=== PATIENT | male | born 1955 | race African-American/Black ===

== ENCOUNTER 2020-11-18 10:26 | Inpatient (IN) | payer MEDICARE, MEDICAID ==
[~2020-11-18] VITALS: Ht 121.9 cm; Wt 54.1 kg
[2020-11-18 11:44] LABS: BASO # 0.1 x10^3/uL (0.0-0.2); BASO % 0 % (0-3); EOS # 0.4 x10^3/uL (0.0-0.7); EOS % 2 % (0-3); HEMATOCRIT 25.5 % (39.0-53.0); HEMOGLOBIN 8.4 g/dL (13.0-17.5); LYMPH # 1.5 x10^3/uL (1.0-4.8); LYMPH % 8 % (24-48); MEAN CORPUSCULAR HEMOGLOBIN 28 pg (25-35); MEAN CORPUSCULAR HGB CONC 33 g/dL (31-37); MEAN CORPUSCULAR VOLUME 85 fL (79-100); MONO # 0.9 x10^3/uL (0.0-1.1); MONO % 5 % (0-9); NEUT # 15.9 x10^3/uL (1.8-7.7); NEUT % 85 % (31-73); PLATELET COUNT 491 x10^3/uL (140-400); RED CELL DISTRIBUTION WIDTH 16.3 % (11.5-14.5); WHITE BLOOD COUNT 18.8 x10^3/uL (4.0-11.0)
[2020-11-18 11:59] LABS: CALCIUM 8.6 mg/dL (8.5-10.1); CREATININE 2.4 mg/dL (0.7-1.3); GFR 32.9; POTASSIUM 4.2 mmol/L (3.5-5.1)
[2020-11-18 12:05] LABS: ALBUMIN 1.9 g/dL (3.4-5.0); ALBUMIN/GLOBULIN RATIO 0.4 (1.0-1.7); MAGNESIUM 2.5 mg/dL (1.8-2.4); TOTAL BILIRUBIN 0.3 mg/dL (0.2-1.0); TOTAL PROTEIN 6.5 g/dL (6.4-8.2)
[2020-11-18] MEDS ORDERED: PIP/TAZO PER PHARMACY MC PRN (12:30)
[2020-11-18] MEDS: PIPERACILLIN/TAZOBACTAM 2.25 GM in IV NORMAL SALINE 50ML 50 ML IV SCH ×2 (12:57→18:47)
--- NOTE | 2020-11-18 13:06 | PHYS DOC ---
Past Medical History Past Medical History: Diabetes-Type I, Renal Disease Past Surgical History: Other Additional Past Surgical Histo: COLOSTOMY BAG, DIALYSIS PORT Smoking Status: Never Smoker Alcohol Use: None General Adult EDM: Chief Complaint: MULTIPLE COMPLAINTS HPI: HPI: Patient is a 65-year-old male who was sent here by Dr. Weems of the pulmonary service at [facility] because the patient has a large pleural effusion on the left side and hit temporal dialysis catheter on the right side was clogged. Patient had end-stage renal failure on hemodialysis every Sunday and Sunday. Patient had his dialysis on Sunday, he went to dialysis on Sunday but they could not access the hemodialysis catheter therefore he did not have the dialysis. Patient otherwise did not have any fever or cough. He had [id number]-[id number] amputation bilaterally, he is bedbound, had decubitus ulcer on his buttock, has wound vac. Review of Systems: Review of Systems: Constitutional: Denies fever or chills. [] Eyes: Denies change in visual acuity. [] HENT: Denies nasal congestion or sore throat. [] Respiratory: Denies cough or shortness of breath. [] Cardiovascular: Denies chest pain or edema. [] GI: Denies abdominal pain, nausea, vomiting, bloody stools or diarrhea. [] : Denies dysuria. [] Musculoskeletal: Denies back pain or joint pain. [] Integument: Denies rash. [] Neurologic: Denies headache, focal weakness or sensory changes. [] Endocrine: Denies polyuria or polydipsia. [] Lymphatic: Denies swollen glands. [] Psychiatric: Denies depression or anxiety. [] Heart Score: Risk Factors: Risk Factors: DM, Current or recent (<one month) smoker, HTN, HLP, family history of CAD, obesity. Risk Scores: Score 0 - 3: 2.5% MACE over next 6 weeks - Discharge Home Score 4 - 6: 20.3% MACE over next 6 weeks - Admit for Clinical Observation Score 7 - 10: 72.7% MACE over next 6 weeks - Early Invasive Strategies Current Medications: Current Medications Medications (Trade) Dose Ordered Sig/Patrick Start Time Stop Time Status Last Admin Dose Admin Piperacillin Sod/ Tazobactam Sod (Zosyn Per Pharmacy) 1 each PRN DAILY PRN 11/18/20 12:30 Piperacillin Sod/ Tazobactam Sod 2.25 gm/Sodium Chloride 50 ml @ 100 mls/hr Q6HRS 11/18/20 13:00 11/18/20 12:57 100 MLS/HR Allergies: Allergies: Allergies Coded Allergies Type Severity Reaction Last Updated Verified morphine Allergy Intermediate HALLUCINATE 11/18/20 Yes Physical Exam: PE: Constitutional: Well developed, well nourished, no acute distress, non-toxic appearance. [] HENT: Normocephalic, atraumatic, bilateral external ears normal, oropharynx moist, no oral exudates, nose normal. [] Eyes: PERRLA, EOMI, conjunctiva normal, no discharge. [] Neck: Normal range of motion, no tenderness, supple, no stridor. [] Cardiovascular:Heart rate regular rhythm, no murmur [] Lungs & Thorax: Bilateral breath sounds clear to auscultation [] Abdomen: Bowel sounds normal, soft, no tenderness, no masses, no pulsatile masses. [] Skin: Warm, dry, no erythema, no rash. [] Back: No tenderness, no CVA tenderness. [] Extremities: above the knee amputation... Neurologic: Alert and oriented X 3, normal motor function, normal sensory function, no focal deficits noted. [] Psychologic: Affect normal, judgement normal, mood normal. [] Current Patient Data: Labs: Laboratory Tests Test 11/18/20 11:15 White Blood Count 18.8 x10^3/uL (4.0-11.0) H Red Blood Count 3.00 x10^6/uL (4.30-5.70) L Hemoglobin 8.4 g/dL (13.0-17.5) L Hematocrit 25.5 % (39.0-53.0) L Mean Corpuscular Volume 85 fL (79-100) Mean Corpuscular Hemoglobin 28 pg (25-35) Mean Corpuscular Hemoglobin Concent 33 g/dL (31-37) Red Cell Distribution Width 16.3 % (11.5-14.5) H Platelet Count 491 x10^3/uL (140-400) H Neutrophils (%) (Auto) 85 % (31-73) H Lymphocytes (%) (Auto) 8 % (24-48) L Monocytes (%) (Auto) 5 % (0-9) Eosinophils (%) (Auto) 2 % (0-3) Basophils (%) (Auto) 0 % (0-3) Neutrophils # (Auto) 15.9 x10^3/uL (1.8-7.7) H Lymphocytes # (Auto) 1.5 x10^3/uL (1.0-4.8) Monocytes # (Auto) 0.9 x10^3/uL (0.0-1.1) Eosinophils # (Auto) 0.4 x10^3/uL (0.0-0.7) Basophils # (Auto) 0.1 x10^3/uL (0.0-0.2) Platelet Estimate Pending Sodium Level 138 mmol/L (136-145) Potassium Level 4.2 mmol/L (3.5-5.1) Chloride Level 103 mmol/L (98-107) Carbon Dioxide Level 27 mmol/L (21-32) Anion Gap 8 (6-14) Blood Urea Nitrogen 75 mg/dL (8-26) H Creatinine 2.4 mg/dL (0.7-1.3) H Estimated GFR (Cockcroft-Gault) 32.9 BUN/Creatinine Ratio 31 (6-20) H Glucose Level 214 mg/dL (70-99) H Calcium Level 8.6 mg/dL (8.5-10.1) Magnesium Level 2.5 mg/dL (1.8-2.4) H Total Bilirubin 0.3 mg/dL (0.2-1.0) Aspartate Amino Transferase (AST) 30 U/L (15-37) Alanine Aminotransferase (ALT) 25 U/L (16-63) Alkaline Phosphatase 240 U/L (46-116) H Total Protein 6.5 g/dL (6.4-8.2) Albumin 1.9 g/dL (3.4-5.0) L Albumin/Globulin Ratio 0.4 (1.0-1.7) L Laboratory Tests 11/18/20 11:15 Laboratory Tests 11/18/20 11:15 Vital Signs: Vital Signs Date Time Temp Pulse Resp B/P (MAP) Pulse Ox O2 Delivery O2 Flow Rate FiO2 11/18/20 10:29 97.8 94 18 137/63 (87) 100 Room Air 97.8 EKG: EKG: EKG was done at 1033, heart rate of 96 beats per minutes, sinus rhythm, PVC Radiology/Procedures: Radiology/Procedures: [facility] [address] [place] [address] IMAGING REPORT Signed PATIENT: PADMINI SEXTON ACCOUNT: [id number] : 1955 LOCATION: ER AGE: 65 SEX: M EXAM STATUS: REG ER ORD. PHYSICIAN: JAKE DAWSON DO REASON: SOA PROCEDURE: CHEST AP ONLY Portable chest x-ray without comparison for nonfunctioning dialysis catheter, chronic renal failure. FINDINGS: There is a right IJ tunneled hemodialysis catheter. There is pleural effusion on the left, and there is likely bibasilar edema or infiltrate as well. Heart size within normal limits. Vascular stents are seen within the left axilla and there are severe degenerative changes of the shoulders. IMPRESSION: 1. Left pleural effusion with bibasilar infiltrates. Electronically signed by: Ananda Fonseca MD (11/18/2020 1:05 PM) [id number] DICTATED and SIGNED BY: ANANDA FONSECA MD DATE: 11/18/20 [id number] Course & Med Decision Making: Course & Med Decision Making Pertinent Labs and Imaging studies reviewed. (See chart for details) [] Dragon Disclaimer: Dragon Disclaimer: This electronic medical record was generated, in whole or in part, using a voice recognition dictation system. Departure Departure Impression: Primary Impression: Dialysis catheter clot or failure Additional Impressions: ESRD (end stage renal disease) on dialysis Pleural effusion on left Disposition: 09 ADMITTED INPT THIS HOSP Admitting Physician: ELYSE (DR. COWAN) Condition: STABLE Referrals: SEBASTIAN AGUILAR MD (PCP) JAKE DAWSON DO Nov 18, 2020 13:06
[2020-11-18 13:12] LABS: % EOS 2 % (0-5); % LYMPHS 8 % (24-48); % MONOS 2 % (0-10); % SEGS 88 % (35-66)
[2020-11-18 13:13] LABS: ANISOCYTOSIS SLIGHT; PLT ESTIMATE ADEQUATE (ADEQUATE)
--- NOTE | 2020-11-18 14:20 | HP ---
ADMIT DATE: 11/18/2020 CHIEF COMPLAINT: Sent from [facility] to have thoracentesis due to pleural effusion and to have his hemodialysis catheter changed as it is malfunctioning. HISTORY OF PRESENT ILLNESS: The patient is a pleasant elderly male who has had a complex recent past history. Basically on 10/19/2020, he was admitted to [facility] for management of wounds and sepsis. He had been recently admitted to [facility] on 10/08/2020 where he was treated for osteomyelitis. He is a dialysis patient. He has had a recent upper extremity DVT for which he has been on Coumadin. I have initially noted he does have bilateral [id number] amputations. He also has a colostomy on the left. He states he has some chronic cancer but is not sure what it is. He was recently transfused because of her hemoglobin is low at 6.2. He had recent colonoscopies and endoscopies, which were negative. On 09/23/2020, he had a dialysis catheter removed and replaced on 10/08/2020. Apparently, he developed a large right pneumothorax after that procedure and a chest tube had to be placed. The tube was there for about 4 days from 10/11/2020 to 10/15/2020. He seems to have chronic elevation of his troponins and that is likely secondary to his chronic renal insufficiency. He has multiple wounds. He has been sent here today to our Emergency Room by Dr. Weems of the pulmonary service at [facility] because the patient has a pleural effusion and his dialysis catheter was malfunctioning. The patient is currently being examined in the ER where I just discussed the case with his nurses and Dr. Augustin the ER physician. We are going to admit the patient. PAST MEDICAL HISTORY: As per above, plus he has a history of coronary artery disease, peripheral vascular disease, diabetes, end-stage renal disease on dialysis, multiple shunts and catheters, colostomy, some type of cancer, but he is not sure. He has a remote history of VRE, hyperlipidemia, constipation, polypharmacy, chronic anticoagulation. ALLERGIES: MORPHINE. FAMILY HISTORY: Diabetes. SOCIAL HISTORY: He is retired. He does not drink, smoke or take drugs. MEDICATIONS: Reviewed, please refer to the MRAD. REVIEW OF SYSTEMS: GENERAL: He complains of weakness. SKIN: No bruising, hair changes or rashes. EYES: No blurred, double or loss of vision. NOSE AND THROAT: No history of nosebleeds, hoarseness or sore throat. HEART: No history of palpitations, chest pain or shortness of breath on exertion. LUNGS: He complains of shortness of breath. GASTROINTESTINAL: Denies changes in appetite, nausea, vomiting, diarrhea or constipation. GENITOURINARY: No history of frequency, urgency, hesitancy or nocturia. NEUROLOGIC: He complains of weakness. PSYCHIATRIC: He complains of depression. ENDOCRINE: No history of heat or cold intolerance, polyuria or polydipsia. EXTREMITIES: Denies muscle weakness, joint pain, pain on walking or stiffness. PHYSICAL EXAMINATION: VITALS: Within normal limits and are stable. GENERAL: He appears depressed. HEENT: Normal cephalic atraumatic, external auditory canals are patent EYES: Extraocular muscles are intact, pupils are equally round and reactive to light and accommodation MUSCULOSKELETAL: Well developed, well nourished, good range of motion ENDOCRINE: No thyromegaly was palpated LYMPHATICS: No cervical chain or axillary nodes were noted HEMATOPOIETIC: No bruising NECK: Supple, no JVD, no thyromegaly was noted. LUNGS: Clear to auscultation in all lung echavarria without rhonchi or wheezing. HEART: RRR, S1, S2 present. Peripheral pulses intact, no obvious murmurs were noted. ABDOMEN: He has a colostomy on the left lower quadrant, it appears to have some blood in it. EXTREMITIES: He has bilateral ahjmw-qib-sznz amputations of the lower extremities. NEUROLOGIC: He appears weak and depressed. PSYCHIATRIC: He appears depressed. SKIN: No ulcerations or rashes, good skin turgor, no jaundice. VASCULAR: Good capillary refill, neurovascular bundle appears to be intact. LABORATORY DATA: White count 18.8, hemoglobin 8.4, platelets 491. Electrolytes: Sodium 138, potassium 4.2, chloride 103, bicarbonate 27, BUN 75, creatinine 2.4, glucose 214. Chest x-ray is done, results are pending, but I have reviewed the films myself. The cardiac silhouette appears normal. There is a rvigi-hz-[id number] size left pleural effusion. He has a dialysis catheter on the right. It appears to be in good position. We will await further read by the radiologist. ASSESSMENT AND PLAN: Pleural effusion, failed dialysis catheter in an elderly male with multiple comorbidities, please see above. The patient has been admitted. We will consult Nephrology, consult Interventional Radiology consult Pulmonary Medicine. Cardiac monitoring, home meds, deep venous thrombosis prophylaxis. Trend labs. CC TIME: 31 minutes. EJ COWAN DO DR: SERENA/loraine JOB#: [id number] / [id number]
[2020-11-18 16:02] LABS: PROTHROMBIN TIME PATIENT 16.2 SEC (11.7-14.0)
[2020-11-18] MEDS ORDERED: fentaNYL PF VIAL 100 MCG/2 ML VIAL ONE (16:05)
[2020-11-18] MEDS: fentaNYL PF VIAL 100 MCG/2 ML VIAL IVP PRN (16:07)
[2020-11-18] MEDS: oxyCODONE/APAP 5/325 1 TAB TABLET PO PRN (17:51)
--- NOTE | 2020-11-18 20:00 | NUR ---
The patient, Jim Menendez, admitted to room 502, multiple wounds with dressings, one has a wound vac edmond dressing, to pic and change,
[2020-11-18 23:00] VITALS: BP 143/69
[2020-11-19] VITALS (7 sets, daily range): BP systolic 124–173; BP diastolic 64–74
[2020-11-19] MEDS ORDERED: ARGI1POW23 PO (00:01)
[2020-11-19] MEDS ORDERED: INSU100V13 SQ (00:01)
[2020-11-19] MEDS ORDERED: MELA5TAB21 PO (00:01)
[2020-11-19] MEDS ORDERED: ACET325T21 PO (00:01)
[2020-11-19] MEDS ORDERED: SODI473S25 MC (00:01)
[2020-11-19] MEDS ORDERED: MEGASE (00:01)
[2020-11-19] MEDS ORDERED: DOCU-109 PO (00:01)
[2020-11-19] MEDS ORDERED: LORA10CA PO (00:01)
[2020-11-19] MEDS ORDERED: MIDO10TA PO (00:01)
[2020-11-19] MEDS ORDERED: EPOE200014 IJ (00:01)
[2020-11-19] MEDS ORDERED: CARB1TAB22 PO (00:01)
[2020-11-19] MEDS ORDERED: FENT1PAT13 TP (00:01)
[2020-11-19] MEDS ORDERED: PANT40TA77 PO (00:01)
[2020-11-19] MEDS ORDERED: VANC750P15 IV (00:01)
[2020-11-19] MEDS ORDERED: SILV20CR14 TP (00:01)
[2020-11-19] MEDS ORDERED: [UNRECOGNIZED DRUG - OTHER] IV (00:01)
[2020-11-19] MEDS ORDERED: ATOR40TA59 PO (00:01)
[2020-11-19] MEDS ORDERED: SERT50TA PO (00:01)
[2020-11-19] MEDS ORDERED: OXYC1TAB15 PO (00:01)
[2020-11-19] MEDS: PIPERACILLIN/TAZOBACTAM 2.25 GM in IV NORMAL SALINE 50ML 50 ML IV SCH ×2 (00:17→06:32)
--- NOTE | 2020-11-19 03:00 | NUR ---
Patient's pre-admit dressings changed, pictured, w-d dressing, foam applied,
--- NOTE | 2020-11-19 05:00 | NUR ---
Patient had fentanyl patch 12.5 to right shoulder from facility, date 11/11..removed, shown to Delia (4 n) nurse, disposed in medication disposal unit.
--- NOTE | 2020-11-19 13:11 | PDOC2 ---
CONSULT Date of Consult Date of Consult DATE: 11/19/20 TIME: 13:04 Reason for Consult Reason for Consult: ESRD Referring Physician Referring Physician: CHAPO Identification/Chief Complaint Chief Complaint THIS IS A 65 YR OLD ESRD PT WITH SOB. NOTED TO HAVE LARGE LEFT PLEURAL EFFUSION. HE HAS ESRD AND HAS OP HD ON MWF VIA A RIGHT IJ TDC. HAS NOT HAD HD IN NEARLY A WEEK PER PT DUE TO POORLY FUNCTIONING DIALYSIS CATHETER. ESRD IS DUE TO HTN AND DM II. LABS ARE C/W ESRD. HE IS ALSO NOTED TO HAVE LEUCOCYTOSIS. ALSO HAS A SACRAL DECUBITI AND AN ULCER. Source Source: Chart review, Patient History of Present Illness Reason for Visit: ABOVE Past Medical History Cardiovascular: HTN GI: Constipation Heme/Onc: Anemia NOS Renal/: Chronic renal failure Endocrine: Diabetes, Hyperparathyroidism Past Surgical History Past Surgical History BILATERAL BKA Family History Family History: Diabetes, Hypertension Social History No ALCOHOL: none Drugs: None Lives: Assisted Current Problem List Problem List Problems Medical Problems: (1) Dialysis catheter clot or failure Status: Acute (2) ESRD (end stage renal disease) on dialysis Status: Acute (3) Pleural effusion on left Status: Acute Current Medications Current Medications Current Medications Piperacillin Sod/ Tazobactam Sod (Zosyn Per Pharmacy) 1 each PRN DAILY PRN MC SEE COMMENTS; Start 11/18/20 at 12:30 Piperacillin Sod/ Tazobactam Sod 2.25 gm/Sodium Chloride 50 ml @ 100 mls/hr Q6HRS IV Last administered on 11/19/20at 06:32; Start 11/18/20 at 13:00 Fentanyl Citrate (Fentanyl 2ml Vial) 50 mcg PRN Q2HR PRN IVP MODERATE TO SEVERE PAIN Last administered on 11/18/20at 16:07; Start 11/18/20 at 16:15 Fentanyl Citrate (Fentanyl 2ml Vial) 100 mcg STK-MED ONCE .ROUTE ; Start 11/18/20 at 16:05; Stop 11/18/20 at 16:05; Status DC Oxycodone/ Acetaminophen (Percocet 5/325) 1 tab PRN Q4HRS PRN PO PAIN Last administered on 11/18/20at 17:51; Start 11/18/20 at 17:45 Active Scripts Active Reported Percocet 5-325 Mg Tablet (Oxycodone/Acetaminophen) 1 Each Tablet 1 Tab PO Q4HRS PRN MDD 4 Tablet(s) 30 Days Acetaminophen 325 Mg Tablet 650 Mg PO PRN Q6HRS PRN Dakin's (Sodium Hypochlorite) 473 Ml Solution 473 Ml MC BID Silvadene (Silver Sulfadiazine) 20 Gm Cream..g. 1 Ela TP DAILY 7 Days apply to affected area(s) Zoloft (Sertraline Hcl) 50 Mg Tablet 1 Tab PO DAILY Pantoprazole Sodium (Pantoprazole Sodium) 40 Mg Tablet.dr 40 Mg PO DAILYAC Midodrine Hcl 10 Mg Tablet 10 Mg PO TID Melatonin 5 Mg Tab.ir.er 1 Tab PO QHS 30 Days [megase 400 daily] DAILY Levemir (Insulin Detemir) 100 Unit/1 Ml Vial 4 Unit SQ HS FENTANYL 12mcg/hr (Fentanyl) 1 Each Patch.td72 1 Patch TP Q3DAYS Procrit (Epoetin Anirudh) 20,000 Unit/1 Ml Vial 4,000 Unit IJ MWF Colace (Docusate Sodium) 100 Mg Capsule 1 Cap PO BID 30 Days Claritin (Loratadine) 10 Mg Capsule 1 Cap PO DAILY 30 Days Carbidopa-Levodopa 25-100 Tab (Carbidopa/Levodopa) 1 Each Tablet 1 Each PO DAILY Atorvastatin Calcium 40 Mg Tablet 1 Tab PO QHS Tom Packet (Argin/Glut/Cahmb/Collag/Mv-Min) 1 Each Powd.pack 1 Each PO BID [ferric] 125 Mg IV Vancomycin 750 mg/150 ml Bag (Vancomycin/Water For Inj (Peg)) 750 Mg/150 Ml Piggyback 500 Mg IV QMWF Allergies Allergies: Coded Allergies: morphine (Verified Allergy, Intermediate, HALLUCINATE, 11/18/20) ROS General: YES: Fatigue, Malaise PSYCHOLOGICAL ROS: YES: Anxiety, Depression Eyes: Yes Decreased vision HEENT: YES: Heacaches Respiratory: YES: Cough, Shortness of breath Gastrointestinal: Yes Constipation Genitourinary: YES Other (ANURIA) Musculoskeletal: Yes Muscular Weakness Neurological: Yes Weakness Skin: Yes Dry Skin Physical Exam General: Alert, Oriented X3, Cooperative HEENT: Atraumatic Lungs: Other (DECREASED AT BASES) Heart: Regular rate Abdomen: Normal bowel sounds Extremities: No clubbing Skin: No breakdown Neuro: Normal speech Psych/Mental Status: Mood NL MUSCULOSKELETAL: Other (BKA BILATERALLY) Vitals VITALS Vital Signs Date Time Temp Pulse Resp B/P (MAP) Pulse Ox O2 Delivery O2 Flow Rate FiO2 11/19/20 11:00 98.5 94 18 173/74 (107) 98 Room Air 98.5 Labs Labs Laboratory Tests Test 11/18/20 11:15 11/18/20 13:06 11/18/20 13:20 11/18/20 16:12 White Blood Count 18.8 x10^3/uL (4.0-11.0) Red Blood Count 3.00 x10^6/uL (4.30-5.70) Hemoglobin 8.4 g/dL (13.0-17.5) Hematocrit 25.5 % (39.0-53.0) Mean Corpuscular Volume 85 fL (79-100) Mean Corpuscular Hemoglobin 28 pg (25-35) Mean Corpuscular Hemoglobin Concent 33 g/dL (31-37) Red Cell Distribution Width 16.3 % (11.5-14.5) Platelet Count 491 x10^3/uL (140-400) Neutrophils (%) (Auto) 85 % (31-73) Lymphocytes (%) (Auto) 8 % (24-48) Monocytes (%) (Auto) 5 % (0-9) Eosinophils (%) (Auto) 2 % (0-3) Basophils (%) (Auto) 0 % (0-3) Neutrophils # (Auto) 15.9 x10^3/uL (1.8-7.7) Lymphocytes # (Auto) 1.5 x10^3/uL (1.0-4.8) Monocytes # (Auto) 0.9 x10^3/uL (0.0-1.1) Eosinophils # (Auto) 0.4 x10^3/uL (0.0-0.7) Basophils # (Auto) 0.1 x10^3/uL (0.0-0.2) Segmented Neutrophils % 88 % (35-66) Lymphocytes % 8 % (24-48) Monocytes % 2 % (0-10) Eosinophils % 2 % (0-5) Platelet Estimate Adequate (ADEQUATE) Anisocytosis Slight Sodium Level 138 mmol/L (136-145) Potassium Level 4.2 mmol/L (3.5-5.1) Chloride Level 103 mmol/L (98-107) Carbon Dioxide Level 27 mmol/L (21-32) Anion Gap 8 (6-14) Blood Urea Nitrogen 75 mg/dL (8-26) Creatinine 2.4 mg/dL (0.7-1.3) Estimated GFR (Cockcroft-Gault) 32.9 BUN/Creatinine Ratio 31 (6-20) Glucose Level 214 mg/dL (70-99) Calcium Level 8.6 mg/dL (8.5-10.1) Magnesium Level 2.5 mg/dL (1.8-2.4) Total Bilirubin 0.3 mg/dL (0.2-1.0) Aspartate Amino Transf (AST/SGOT) 30 U/L (15-37) Alanine Aminotransferase (ALT/SGPT) 25 U/L (16-63) Alkaline Phosphatase 240 U/L (46-116) Total Protein 6.5 g/dL (6.4-8.2) Albumin 1.9 g/dL (3.4-5.0) Albumin/Globulin Ratio 0.4 (1.0-1.7) SARS-CoV-2 Antigen (Rapid) Negative (NEGATIVE) Prothrombin Time 16.2 SEC (11.7-14.0) Prothromb Time International Ratio 1.3 (0.8-1.1) Lactic Acid Level 1.1 mmol/L (0.4-2.0) Test 11/18/20 21:56 11/19/20 07:15 11/19/20 11:46 Glucose (Fingerstick) 214 mg/dL (70-99) 209 mg/dL (70-99) 154 mg/dL (70-99) Laboratory Tests Test 11/18/20 13:06 11/18/20 13:20 11/18/20 16:12 11/18/20 21:56 SARS-CoV-2 Antigen (Rapid) Negative (NEGATIVE) Prothrombin Time 16.2 SEC (11.7-14.0) Prothromb Time International Ratio 1.3 (0.8-1.1) Lactic Acid Level 1.1 mmol/L (0.4-2.0) Glucose (Fingerstick) 214 mg/dL (70-99) Test 11/19/20 07:15 11/19/20 11:46 Glucose (Fingerstick) 209 mg/dL (70-99) 154 mg/dL (70-99) Images Images Portable chest x-ray without comparison for nonfunctioning dialysis catheter, chronic renal failure. FINDINGS: There is a right IJ tunneled hemodialysis catheter. There is pleural effusion on the left, and there is likely bibasilar edema or infiltrate as well. Heart size within normal limits. Vascular stents are seen within the left axilla and there are severe degenerative changes of the shoulders. IMPRESSION: 1. Left pleural effusion with bibasilar infiltrates. Assessment/Plan Assessment/Plan IMP ESRD ANEMIA DM II HTN PLEURAL EFFUSION SACRAL DECUBITI LEUCOCYTOSIS PLAN ANTBIOTICS ARANESP HD LINE CHANGE HD TODAY UF TO DW PROB THORACENTESIS PULM EVAL AND TX WILL FOLLOW LONI PAREKH MD Nov 19, 2020 13:10
--- NOTE | 2020-11-19 13:27 | PDOC ---
PULMONARY PROGRESS NOTES DATE: 11/19/20 TIME: 13:27 Vitals Vital Signs Date Time Temp Pulse Resp B/P (MAP) Pulse Ox O2 Delivery O2 Flow Rate FiO2 11/19/20 11:00 98.5 94 18 173/74 (107) 98 Room Air 98.5 Labs Laboratory Tests Test 11/18/20 11:15 11/18/20 13:06 11/18/20 13:20 11/18/20 16:12 White Blood Count 18.8 x10^3/uL (4.0-11.0) Red Blood Count 3.00 x10^6/uL (4.30-5.70) Hemoglobin 8.4 g/dL (13.0-17.5) Hematocrit 25.5 % (39.0-53.0) Mean Corpuscular Volume 85 fL (79-100) Mean Corpuscular Hemoglobin 28 pg (25-35) Mean Corpuscular Hemoglobin Concent 33 g/dL (31-37) Red Cell Distribution Width 16.3 % (11.5-14.5) Platelet Count 491 x10^3/uL (140-400) Neutrophils (%) (Auto) 85 % (31-73) Lymphocytes (%) (Auto) 8 % (24-48) Monocytes (%) (Auto) 5 % (0-9) Eosinophils (%) (Auto) 2 % (0-3) Basophils (%) (Auto) 0 % (0-3) Neutrophils # (Auto) 15.9 x10^3/uL (1.8-7.7) Lymphocytes # (Auto) 1.5 x10^3/uL (1.0-4.8) Monocytes # (Auto) 0.9 x10^3/uL (0.0-1.1) Eosinophils # (Auto) 0.4 x10^3/uL (0.0-0.7) Basophils # (Auto) 0.1 x10^3/uL (0.0-0.2) Segmented Neutrophils % 88 % (35-66) Lymphocytes % 8 % (24-48) Monocytes % 2 % (0-10) Eosinophils % 2 % (0-5) Platelet Estimate Adequate (ADEQUATE) Anisocytosis Slight Sodium Level 138 mmol/L (136-145) Potassium Level 4.2 mmol/L (3.5-5.1) Chloride Level 103 mmol/L (98-107) Carbon Dioxide Level 27 mmol/L (21-32) Anion Gap 8 (6-14) Blood Urea Nitrogen 75 mg/dL (8-26) Creatinine 2.4 mg/dL (0.7-1.3) Estimated GFR (Cockcroft-Gault) 32.9 BUN/Creatinine Ratio 31 (6-20) Glucose Level 214 mg/dL (70-99) Calcium Level 8.6 mg/dL (8.5-10.1) Magnesium Level 2.5 mg/dL (1.8-2.4) Total Bilirubin 0.3 mg/dL (0.2-1.0) Aspartate Amino Transf (AST/SGOT) 30 U/L (15-37) Alanine Aminotransferase (ALT/SGPT) 25 U/L (16-63) Alkaline Phosphatase 240 U/L (46-116) Total Protein 6.5 g/dL (6.4-8.2) Albumin 1.9 g/dL (3.4-5.0) Albumin/Globulin Ratio 0.4 (1.0-1.7) SARS-CoV-2 Antigen (Rapid) Negative (NEGATIVE) Prothrombin Time 16.2 SEC (11.7-14.0) Prothromb Time International Ratio 1.3 (0.8-1.1) Lactic Acid Level 1.1 mmol/L (0.4-2.0) Test 11/18/20 21:56 11/19/20 07:15 11/19/20 11:46 Glucose (Fingerstick) 214 mg/dL (70-99) 209 mg/dL (70-99) 154 mg/dL (70-99) Laboratory Tests Test 11/18/20 16:12 11/18/20 21:56 11/19/20 07:15 11/19/20 11:46 Lactic Acid Level 1.1 mmol/L (0.4-2.0) Glucose (Fingerstick) 214 mg/dL (70-99) 209 mg/dL (70-99) 154 mg/dL (70-99) Medications Active Scripts Medications Dose Route/Sig Max Daily Dose Days Date Category Dose Instructions Percocet 5-325 Mg Tablet (Oxycodone/Acetaminophen) 1 Each Tablet 1 Tab PO Q4HRS PRN MDD 4 Tablet(s) 30 11/19/20 Reported Acetaminophen 325 Mg Tablet 650 Mg PO PRN Q6HRS PRN 11/19/20 Reported Dakin's (Sodium Hypochlorite) 473 Ml Solution 473 Ml MC BID 11/19/20 Reported Silvadene (Silver Sulfadiazine) 20 Gm Cream..g. 1 Ela TP DAILY 7 11/19/20 Reported apply to affected area(s) Zoloft (Sertraline Hcl) 50 Mg Tablet 1 Tab PO DAILY 11/19/20 Reported Pantoprazole Sodium (Pantoprazole Sodium) 40 Mg Tablet.dr 40 Mg PO DAILYAC 11/19/20 Reported Midodrine Hcl 10 Mg Tablet 10 Mg PO TID 11/19/20 Reported Melatonin 5 Mg Tab.ir.er 1 Tab PO QHS 30 11/19/20 Reported [megase 400 daily] DAILY 11/19/20 Reported Levemir (Insulin Detemir) 100 Unit/1 Ml Vial 4 Unit SQ HS 11/19/20 Reported FENTANYL 12mcg/hr (Fentanyl) 1 Each Patch.td72 1 Patch TP Q3DAYS 11/19/20 Reported Procrit (Epoetin Anirudh) 20,000 Unit/1 Ml Vial 4,000 Unit IJ MWF 11/19/20 Reported Colace (Docusate Sodium) 100 Mg Capsule 1 Cap PO BID 30 11/19/20 Reported Claritin (Loratadine) 10 Mg Capsule 1 Cap PO DAILY 30 11/19/20 Reported Carbidopa-Levodopa 25-100 Tab (Carbidopa/Levodopa) 1 Each Tablet 1 Each PO DAILY 11/19/20 Reported Atorvastatin Calcium 40 Mg Tablet 1 Tab PO QHS 11/19/20 Reported Tom Packet (Argin/Glut/Cahmb/Collag/Mv-Min) 1 Each Powd.pack 1 Each PO BID 11/19/20 Reported [ferric] 125 Mg IV 11/19/20 Reported Vancomycin 750 mg/150 ml Bag (Vancomycin/Water For Inj (Peg)) 750 Mg/150 Ml Piggyback 500 Mg IV QMWF 11/19/20 Reported Impression . Full consult dictated Left-sided effusion, discussed with IR, proceed with thoracentesis. HUNTER HIGGINS MD Nov 19, 2020 13:27
--- NOTE | 2020-11-19 13:39 | NUR ---
RIO following for discharge planning. Spoke with RN and reviewed chart. RIO attempted to met with pt, pt sleeping. Spoke with pt's Luli ([phone]) to coordinate care. Pt transferred to [facility] from [facility]. Pt on room air, IV Zosyn, COVID negative. Pt's would like pt to return to [facility] upon discharge. RIO coordinated care with Luis Antonio from [facility]. RIO faxed clinicals. Luis Antonio to submit for insurance authorization. RIO added pt to possible weekend discharge list. Pt does out-patient dialysis at [facility] ([phone]) when he is not at [facility]. RIO following. Addendum: 11/19/20 at 1354 by LISA PATE Patient choice of vendor form completed.
[2020-11-19] MEDS ORDERED: VANCOMYCIN 1.25 GM in IV NORMAL SALINE 250ML 250 ML IV ONE (13:45)
[2020-11-19] MEDS: fentaNYL PF VIAL 100 MCG/2 ML VIAL IVP PRN ×3 (13:49→20:43)
--- NOTE | 2020-11-19 13:50 | CONS ---
DATE OF CONSULTATION: 11/19/2020 REFERRING PHYSICIAN: Dr. Aguilar. REASON FOR CONSULTATION: Antibiotic management. HISTORY OF PRESENT ILLNESS: A 65-year-old -[place]ong[place] male who was admitted to [facility] in October for management of wounds IV antibiotic for sepsis and continued support. The patient has history of end-stage renal disease, on hemodialysis through a dialysis catheter in the right chest wall, was found to have a left pleural effusion. His hemodialysis catheter is also malfunctioning, so it needs removal. The patient has history of hospitalization at [facility] in 10/2020 during which time he was diagnosed with bacteremia and osteomyelitis. He was discharged on ertapenem to complete through 11/24/2020. The patient also was diagnosed with right upper extremity DVT for which he has been on Coumadin. He also underwent transfusion as his hemoglobin was low. The patient underwent dialysis catheter removal on 09/23/2020 and replaced on 10/08/2020. Apparently, he developed right pneumothorax after the procedure and a chest tube had to be placed. The tube was there until 10/15/2020. Patient also has multiple wounds on both the ischium unstageable, patient also underwent right AKA approximately a year ago and left AKA approximately 7 years ago. Also, has diverting ostomy. The patient is currently on Zosyn. ID consultation has been requested for further evaluation and treatment. PAST MEDICAL HISTORY: Coronary artery disease, peripheral vascular disease, diabetes, end-stage renal disease, on dialysis, multiple shunts and catheters, colostomy, bilateral AKA, history of ESBL E. coli bacteremia on meropenem, multiple wounds right and left ischium unstageable debility. Chronic anticoagulation for right upper extremity DVT, anemia, pneumothorax resolved. ALLERGIES: MORPHINE. FAMILY HISTORY: As per HPI. SOCIAL HISTORY: Retired. No smoking, ETOH, or illicit drug use. Currently at [facility]. CURRENT MEDICATIONS: Zosyn. Other medications reviewed in medication list. REVIEW OF SYSTEMS: Denies fevers or chills. Does complain of weakness. Denies any abdominal pain, nausea, vomiting, or diarrhea. PHYSICAL EXAMINATION: VITAL SIGNS: Temperature 98.5, pulse 94, respiratory rate 18, blood pressure 173/74, oxygen saturation 98% on room air. GENERAL: Alert, awake male lying in bed comfortably, in no acute distress, appears depressed. HEENT: Normocephalic, atraumatic, anicteric. No thrush. NECK: Supple. LUNGS: Decreased breath sound at the bases, left greater than right. No wheezing. No accessory muscle use. HEART: S1, S2. ABDOMEN: Colostomy in left lower quadrant appears to be functioning, some blood in it, no distension. Bowel sounds present. 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 NEUROLOGIC: Weak, alert and awake. PSYCHIATRIC: Depressed. DERMATOLOGIC: No generalized rash. Wound was not assessed today. HDC catheter, right chest wall present. LABORATORY DATA: WBC 18.8, hemoglobin 8.4, hematocrit 25.5, platelets 491. Sodium 138, potassium 4.2, chloride 103, bicarbonate 27, BUN 75, creatinine 2.4, glucose 214. Lactate 1.1, alkaline phosphatase 240, albumin 1.9. INR 1.3. COVID-19 rapid negative. DIAGNOSTICS: Chest x-ray, left pleural effusion with bibasilar infiltrates. IMPRESSION: 1. History of E. coli extended spectrum beta lactamase bacteremia at [facility]. I do not have the details. The patient was to continue ertapenem through 11/24/2020. 2. Left pleural effusion. Awaiting thoracocentesis 3. Failed hemo-dialysis catheter. 4. Multiple unstageable stage 4 pressure ulcers to sacrum right and left ischium and left trochanter with history of osteomyelitis. 5. Anemia. Leukocytosis 6. End-stage renal disease, on hemodialysis. 7. Generalized debility. 8. History of right upper extremity deep venous thrombosis. 9. Anemia. 10. Pneumothorax, resolved. 11. Diabetes mellitus 2. 12. Severe malnutrition. 13. Diverting colostomy. RECOMMENDATIONS: 1. Discontinue Zosyn. 2. Start meropenem as the patient was on the same at [facility]. Restart IV Vancomycin 3. Continue local wound care. 4. Plans are for HD catheter removal later today. 5. Follow up blood cultures. 6. Monitor labs. 7. Continue wound care as directed. 8. Follow up left pleural fluid studies 9. Continue supportive care. Prognosis poor Thank you for allowing me to participate in this patient's care. If you have any questions, do not hesitate to contact me. RAMIRO SALAS MD DR: LIBORIO/loraine JOB#: [id number] / [id number] ANNABELD
[2020-11-19] MEDS ORDERED: LIDOCAINE WITH 8.4% SOD BICARB 3 ML DISP.SYRIN. ONE (13:53)
[2020-11-19] MEDS ORDERED: MIDAZOLAM HCL/PF 2 MG/2 ML VIAL. ONE (14:09)
[2020-11-19] MEDS ORDERED: fentaNYL PF VIAL 100 MCG/2 ML VIAL ONE (14:09)
--- NOTE | 2020-11-19 14:25 | PDOC ---
[employer] PROGRESS NOTE Date of Service DOS: DATE: 11/19/20 TIME: 14:22 Chief Complaint Chief Complaint Left pleural effusion Malfunctioning dialysis catheter Reactive leukocytosis Chronic anemia due to ESRD Severe protein malnutrition Pending thoracentesis with interventional radiology Continue with HD with nephrology Continue with empiric IV antibiotics per ID Pending blood and urine cultures Heparin for DVT prophylaxis ADA diet Full code Discussed with RN and SW Disposition inpatient management as above Surrogate decision maker is Luli Menendez History of Present Illness History of Present Illness 11/19/2020 No acute events overnight. Patient remains afebrile. Pending thoracentesis today and revision of this dialysis catheter. Patient's chart, labs, images were reviewed and discussed with RN The patient is a pleasant elderly male who has had a complex recent past history. Basically on 10/19/2020, he was admitted to [facility] for management of wounds and sepsis. He had been recently admitted to [facility] on 10/08/2020 where he was treated for osteomyelitis. He is a dialysis patient. He has had a recent upper extremity DVT for which he has been on Coumadin. I have initially noted he does have bilateral [id number] amputations. He also has a colostomy on the left. He states he has some chronic cancer but is not sure what it is. He was recently transfused because of her hemoglobin is low at 6.2. He had recent colonoscopies and endoscopies, which were negative. On 09/23/2020, he had a dialysis catheter removed and replaced on 10/08/2020. Apparently, he developed a large right pneumothorax after that procedure and a chest tube had to be placed. The tube was there for about 4 days from 10/11/2020 to 10/15/2020. He seems to have chronic elevation of his troponins and that is likely secondary to his chronic renal insufficiency. He has multiple wounds. He has been sent here today to our Emergency Room by Dr. Weems of the pulmonary service at [facility] because the patient has a pleural effusion and his dialysis catheter was malfunctioning Vitals/I&O Vitals/I&O: Vital Signs Date Time Temp Pulse Resp B/P (MAP) Pulse Ox O2 Delivery O2 Flow Rate FiO2 11/19/20 13:49 19 93 Room Air 11/19/20 11:00 98.5 94 173/74 (107) 98.5 I & O 11/18/20 11/18/20 11/19/20 15:00 23:00 07:00 Intake Total 50 ml Output Total 0 ml Balance 50 ml Physical Exam General: Alert, Oriented X3, Cooperative Heart: Regular rate Abdomen: Normal bowel sounds Extremities: No clubbing Skin: No breakdown Labs Labs: Laboratory Tests Test 11/18/20 16:12 11/18/20 21:56 11/19/20 07:15 11/19/20 11:46 Lactic Acid Level 1.1 mmol/L (0.4-2.0) Glucose (Fingerstick) 214 mg/dL (70-99) 209 mg/dL (70-99) 154 mg/dL (70-99) Assessment and Plan Assessmemt and Plan Problems Medical Problems: (1) Dialysis catheter clot or failure Status: Acute (2) ESRD (end stage renal disease) on dialysis Status: Acute (3) Pleural effusion on left Status: Acute Comment Review of Relevant I have reviewed the following items ruby (where applicable) has been applied. Medications: Current Medications Medications (Trade) Dose Ordered Sig/Patrick Route PRN Reason Start Time Stop Time Status Last Admin Dose Admin Fentanyl Citrate (Fentanyl 2ml Vial) 50 mcg PRN Q2HR PRN IVP MODERATE TO SEVERE PAIN 11/18/20 16:15 11/19/20 13:49 Oxycodone/ Acetaminophen (Percocet 5/325) 1 tab PRN Q4HRS PRN PO PAIN 11/18/20 17:45 11/18/20 17:51 Justifications for Admission Other Justification ADRYAN BOUDREAUX MD Nov 19, 2020 14:25
[2020-11-19] MEDS ORDERED: LIDOCAINE 2%/EPI 1:100,000 20 ML VIAL. ONE (14:29)
[2020-11-19] MEDS ORDERED: LIDOCAINE 2%/EPI 1:100,000 20 ML VIAL. IJ ONE (14:30)
[2020-11-19] MEDS ORDERED: MIDAZOLAM HCL/PF 2 MG/2 ML VIAL. IV ONE (14:30)
[2020-11-19] MEDS ORDERED: LIDOCAINE WITH 8.4% SOD BICARB 3 ML DISP.SYRIN. IJ ONE (14:30)
[2020-11-19] MEDS ORDERED: fentaNYL PF VIAL 100 MCG/2 ML VIAL IV ONE (14:30)
--- NOTE | 2020-11-19 14:38 | NUR ---
Wound/Ostomy Care Wound Type/Assessment: Pt seen per wound care consult. See wound assessment. Pt has unstageable PU to the right and left ischiums, both slough covered with mild odor, a stage IV to the sacrum with bone exposed and undermining, and a stage III to the left hip with underming and slough covered. Pt stated he has had these wounds for quite some time. Treatment Recommendations/Plan: Recommendations for medi-honey gel applied to Aquacel Ag and cover with foams to the left and right ischiums and the left hip wounds, then Aquacel ag and foam dressing to the sacrum wound. Pt will need a surgical consult for possible debridement to the left and right ischium and left hip wounds. The plan is too allow for the honey to help soften and debride the wounds over the weekend. Education provided: Pt educated on dressing changes and PU management and treatment. Offloading surface/device: A clinitron bed ordered for this patient and a purple wedge. Recommended Referrals/Tests: Pt will need a surgical consult. Discharge Recommendations for dressings: Dressings applied and dressing change instructions left in room. Pt in significant amount of pain with these wounds. No other wounds noted upon complete head to toe assessment. Wound care will follow up with this patient on Sunday.
--- NOTE | 2020-11-19 15:12 | PDOC ---
BRIEF OPERATIVE NOTE Pre-Op Diagnosis Pleural Effusion, malfunctioning dialysis catheter Post-Op Diagnosis same Procedure Performed US thoracentesis and tunnelled HD catheter exchange Surgeon Erik SKY minimal Anesthesia Type: Conscious Sedation Specimens Obtained 80cc thin yellow pleural fluid Findings Left pleural effusion. Specimen sent. Right IJ tunnelled HD catheter through same venous access with excellent manual flows, suitable for use. Complications No immediate BRIDGET FONSECA MD Nov 19, 2020 15:12
--- NOTE | 2020-11-19 15:12 | PDOC ---
MODERATE SEDATION ASSESSMENT RISKS/ALTERNATIVES Risks/Alternatives Risks and alternatives of this type of sedation and procedure discussed with: RISK/ALTERNATIVES: Patient H & P ON CHART H & P H & P on chart and reviewed for co-morbid conditions and appropriate labs. H&P ON CHART: Yes STATUS PREG STATUS ASSESSED: Yes MEDS/ALLERGIES REVIEWED Meds/Allergies Reviewed Medications and Allergies including time and route of recently administered narcotics and sedatives. MEDS/ALLERGIES REVIEWED: Yes ASA RATING ASA RATING: II AIRWAY ASSESSMENT Airway Assessment Airway patency, oral function limitations, presence of caps, crowns, dentures, partials, and ability to extend neck assessed. AIRWAY ASSESSMENT: Yes MALLAMPATI SCORE MALLAMPATI SCORE: II PRE-SEDATION ASSESSMENT PRE-SEDATION ASSESSMENT: Yes BRIDGET FONSECA MD Nov 19, 2020 15:12
--- NOTE | 2020-11-19 15:16 | RAD ---
Ultrasound Guided Thoracentesis, left side Indication: Adult male with left pleural fluid collection Sedation: Local anesthesia only. Sterility: The procedure was performed in its entirety using appropriate elements of sterile technique. Technique and Findings: Following informed consent, the patient was prepped and draped in the usual sterile fashion. Ultrasound interrogation of the area of interest was performed revealing the presence of a pleural fluid collection. 1% Lidocaine was used to achieve local anesthesia over the area of interest. A small dermatotomy was made and a 5F [id number] catheter was advanced under ultrasound guidance into the pleural space and 1350 cc's of clear tanner fluid was removed. The catheter was then removed and hemostasis was achieved with manual compression. Impression: US thoracentesis as described.
--- NOTE | 2020-11-19 15:18 | RAD ---
Procedure: Exchange of tunneled hemodialysis catheter through same venous access Clinical Indication: Adult male with malfunctioning tunneled hemodialysis catheter Sedation: Conscious sedation was administered with a total intraprocedural [id number] time of 19 minutes. The patient was monitored by a qualified independent observer throughout the time of sedation. Please refer to the medical record for exact doses of medications utilized to achieve moderate sedation. Antibiotics: Antibiotic was administered intravenously within 1 hour of the procedure start time. Exposure: Kerma-Area Product: 1 Gycm2 Sterility: All elements of maximal sterile barrier technique including the use of a cap, mask, sterile gown, sterile gloves, large sterile sheet, appropriate hand hygiene, and 2% chlorhexidine for cutaneous antisepsis (or acceptable alternative antiseptic per current guidelines) were followed for this procedure. Consent: The procedure was explained in its entirety to the patient or the patients designated patient admitting representative by a member of the treatment team, including a discussion of the risks, benefits and commonly accepted alternatives to the procedure, as well as the expected consequences of no therapy whatsoever. Discussion of the risks included, but was not limited to, those that are most frequent and those that are rare but possibly severe or life-threatening, as well as the possibility of unforeseen complications. Technique and Findings: Following informed consent, the patient was prepped and draped in usual sterile fashion. Preliminary fluoroscopic spot view revealed an intact tunneled hemodialysis catheter. 1% lidocaine was used to achieve local anesthesia around the exit tract, and blunt dissection techniques were used to free the cuff. The catheter was then removed over a stiff Glidewire, and a new 23 cm palindrome catheter was advanced over the wire and positioned with the distal tip in the proximal right atrium. Manual flow rates were assessed and found to be excellent. The new catheter was flushed, capped, and sutured to the skin. Complications: No immediate Impression: 1. Fluoroscopic guided exchange of a malfunctioning hemodialysis catheter for a new hemodialysis catheter through same venous access, which exhibits excellent manual flows and is suitable for use.
--- NOTE | 2020-11-19 15:32 | CONS ---
DATE OF CONSULTATION: 11/19/2020 ATTENDING PHYSICIAN: Niles Aguilar DO CONSULTING PHYSICIAN: Hunter Higgins MD REASON FOR CONSULTATION: The patient is seen in pulmonary consultation at the request of Dr. Aguilar for abnormal x-ray revealing large-sided left-sided effusion whiteout. HISTORY OF PRESENT ILLNESS: The patient is a 65-year-old male with multiple comorbidities, coronary artery disease, peripheral arterial disease, end-stage renal disease, on hemodialysis. He was at [facility] long-term acute care. We actually saw him in consultation there for a large-sided effusion. The patient was transferred to [facility] in the acute care facility. His dialysis catheter is currently nonfunctional. The patient is slightly more short of air. He is not requiring oxygen. His x-ray shows whiteout of the right lung. I was asked to see him in consultation. PAST MEDICAL HISTORY: Remarkable for end-stage renal disease, on hemodialysis; coronary artery disease; peripheral vascular disease; diabetes. He has had previous colostomy placement; history of VRE; hyperlipidemia; constipation. PAST SURGICAL HISTORY: Status post bilateral above-knee amputation. ALLERGIES: MORPHINE. FAMILY HISTORY: Diabetes. SOCIAL HISTORY: He is currently retired, a history of tobacco dependence, in remission. MEDICATIONS: List was reviewed. REVIEW OF SYSTEMS: CONSTITUTIONAL: No fever or chills. EYES: No change in visual acuity. HENT: No nasal congestion or sore throat. PULMONARY: As indicated above. CARDIOVASCULAR: No chest pain. No pressure. GASTROINTESTINAL: No nausea, vomiting, diarrhea. GENITOURINARY: No dysuria or frequency. MUSCULOSKELETAL: No localized muscle aches or joint pains. SKIN: No new skin rashes. NEUROLOGIC: No headaches, diplopia or blurred vision. PHYSICAL EXAMINATION: VITAL SIGNS: Stable. O2 saturation was greater than 92%, currently on room air. NECK: Jugular venous distention was not elevated. LUNGS: Diminished breath sounds on the left. No wheezes. CARDIOVASCULAR: Regular rate and rhythm with S1, S2, no S3. ABDOMEN: Soft, nontender, nondistended. EXTREMITIES: No clubbing, cyanosis or edema. NEUROLOGIC: The patient was awake, alert, following commands. A detailed neuro exam was not performed. EXTREMITIES: He had bilateral above-knee amputation. LABORATORY DATA: Reviewed. White count was 18,000; hemoglobin 8.4; hematocrit of 25; platelet count was 191. Electrolytes were noted. BUN was elevated. Creatinine was elevated. Albumin was low. Rapid test for SARS-CoV-2 was negative. Chest x-ray revealed a whiteout of left lung. IMPRESSION: 1. Abnormal x-ray revealing large left-sided effusion, suspect transudative. 2. End-stage renal disease, on hemodialysis. Nonfunctional hemodialysis catheter. 3. Peripheral vascular disease, status post bilateral above-knee amputation. 4. History of VRE. 5. Constipation. 6. Hypertension. 7. Tobacco dependence, in remission. 8. Sacral decubiti ulcers. 9. Leukocytosis. PLAN: Doubt that the leukocytosis is related to pneumonia with parapneumonic effusion, I suspect this is mainly related to transudative process. Suspect leukocytosis related to sacral wound. The above was discussed with Interventional Radiology, will proceed with diagnostic and therapeutic thoracentesis and pleural fluid out for culture and sensitivity. The patient is to have a hemodialysis catheter replaced. We will empirically treat with meropenem. I do appreciate the privilege in sharing the patient's care. HUNTER HIGGINS MD DR: BISMARK/loraine JOB#: [id number] / [id number]
[2020-11-19] MEDS: VANCOMYCIN PER PHARMACY MC PRN ×2 (16:31→21:10)
[2020-11-19] MEDS ORDERED: DIALYSIS PATIENT. MC PRN ×2 (19:00)
[2020-11-19] MEDS: oxyCODONE/APAP 5/325 1 TAB TABLET PO PRN (19:49)
[2020-11-19] MEDS: LACTOBACILLUS RHAMNOSUS GG 1 CAPSULE. PO SCH (19:49)
[2020-11-19] MEDS ORDERED: DARBEPOETIN ALFA 60 MCG/0.3 ML DISP.SYRIN. SQ SCH (21:00)
--- NOTE | 2020-11-19 21:06 | NUR ---
Pharmacy Vancomycin Dosing Note S:Consulted to monitor and dose vancomycin started 11/19/20. O:PADMINI SEXTON is a 65 year old M with Empiric . Height: 4 feet, 0 inches Weight: 49.066034 kg [place] Body Weight: 22.40 Adjusted Body Weight: 33.52 Dosing Weight: Actual Other Antibiotics: LABS: Last BUN: 75 Last Creatinine: 2.4 Creatinine Clearance: 21 (HD MWF) mL/min Last WBC: 18.8 Last Procalcitonin: Tmax (past 24 hours): Microbiology: HX E COLI EXTENDED SPECTRUM B LACTAMASE BACTEREMIA I/O: Drug Levels: Last level: on at Last dose given at Vancomycin Dosing: Loading Dose: 1250 mg x1 Dosing Weight: Actual Target Trough: 10-20 A: Based on: HT, WT AND RENAL FXN P: 1. Begin Vancomycin 500 mg IV QMWF p HD 2. Follow up level on at 3. Pharmacy will continue to monitor, follow and adjust therapy as needed. SHAWN COSME, [facility], 11/19/20 [id number]
[2020-11-20 03:00] VITALS: BP 117/59
--- NOTE | 2020-11-20 06:59 | PDOC ---
PULMONARY PROGRESS NOTES DATE: 11/20/20 TIME: 06:51 Subjective sob better, denies cough, pain s/p thoracentesis 1350 evacuated. Vitals Vital Signs Date Time Temp Pulse Resp B/P (MAP) Pulse Ox O2 Delivery O2 Flow Rate FiO2 11/20/20 03:00 98.4 92 20 117/59 (78) 100 Room Air 98.4 11/19/20 17:20 2.0 ROS: No Nausea General: Alert HEENT: Other (nc at ) Lungs: Crackles Cardiovascular: S1, S2 Abdomen: Soft, Non-tender Neuro Exam: Alert Extremities: No Edema Skin: Warm Labs Laboratory Tests Test 11/18/20 11:15 11/18/20 12:59 11/18/20 13:06 11/18/20 13:20 White Blood Count 18.8 x10^3/uL (4.0-11.0) Red Blood Count 3.00 x10^6/uL (4.30-5.70) Hemoglobin 8.4 g/dL (13.0-17.5) Hematocrit 25.5 % (39.0-53.0) Mean Corpuscular Volume 85 fL (79-100) Mean Corpuscular Hemoglobin 28 pg (25-35) Mean Corpuscular Hemoglobin Concent 33 g/dL (31-37) Red Cell Distribution Width 16.3 % (11.5-14.5) Platelet Count 491 x10^3/uL (140-400) Neutrophils (%) (Auto) 85 % (31-73) Lymphocytes (%) (Auto) 8 % (24-48) Monocytes (%) (Auto) 5 % (0-9) Eosinophils (%) (Auto) 2 % (0-3) Basophils (%) (Auto) 0 % (0-3) Neutrophils # (Auto) 15.9 x10^3/uL (1.8-7.7) Lymphocytes # (Auto) 1.5 x10^3/uL (1.0-4.8) Monocytes # (Auto) 0.9 x10^3/uL (0.0-1.1) Eosinophils # (Auto) 0.4 x10^3/uL (0.0-0.7) Basophils # (Auto) 0.1 x10^3/uL (0.0-0.2) Segmented Neutrophils % 88 % (35-66) Lymphocytes % 8 % (24-48) Monocytes % 2 % (0-10) Eosinophils % 2 % (0-5) Platelet Estimate Adequate (ADEQUATE) Anisocytosis Slight Sodium Level 138 mmol/L (136-145) Potassium Level 4.2 mmol/L (3.5-5.1) Chloride Level 103 mmol/L (98-107) Carbon Dioxide Level 27 mmol/L (21-32) Anion Gap 8 (6-14) Blood Urea Nitrogen 75 mg/dL (8-26) Creatinine 2.4 mg/dL (0.7-1.3) Estimated GFR (Cockcroft-Gault) 32.9 BUN/Creatinine Ratio 31 (6-20) Glucose Level 214 mg/dL (70-99) Calcium Level 8.6 mg/dL (8.5-10.1) Magnesium Level 2.5 mg/dL (1.8-2.4) Total Bilirubin 0.3 mg/dL (0.2-1.0) Aspartate Amino Transf (AST/SGOT) 30 U/L (15-37) Alanine Aminotransferase (ALT/SGPT) 25 U/L (16-63) Alkaline Phosphatase 240 U/L (46-116) Total Protein 6.5 g/dL (6.4-8.2) Albumin 1.9 g/dL (3.4-5.0) Albumin/Globulin Ratio 0.4 (1.0-1.7) Coronavirus (PCR) Not detected (Not Detected) SARS-CoV-2 Antigen (Rapid) Negative (NEGATIVE) Prothrombin Time 16.2 SEC (11.7-14.0) Prothromb Time International Ratio 1.3 (0.8-1.1) Test 11/18/20 16:12 11/18/20 21:56 11/19/20 07:15 11/19/20 11:46 Lactic Acid Level 1.1 mmol/L (0.4-2.0) Glucose (Fingerstick) 214 mg/dL (70-99) 209 mg/dL (70-99) 154 mg/dL (70-99) Test 11/19/20 14:30 11/19/20 19:40 Body Fluid pH 7.55 Glucose (Fingerstick) 117 mg/dL (70-99) Laboratory Tests Test 11/19/20 07:15 11/19/20 11:46 11/19/20 14:30 11/19/20 19:40 Glucose (Fingerstick) 209 mg/dL (70-99) 154 mg/dL (70-99) 117 mg/dL (70-99) Body Fluid pH 7.55 Medications Active Scripts Medications Dose Route/Sig Max Daily Dose Days Date Category Dose Instructions Percocet 5-325 Mg Tablet (Oxycodone/Acetaminophen) 1 Each Tablet 1 Tab PO Q4HRS PRN MDD 4 Tablet(s) 30 11/19/20 Reported Acetaminophen 325 Mg Tablet 650 Mg PO PRN Q6HRS PRN 11/19/20 Reported Dakin's (Sodium Hypochlorite) 473 Ml Solution 473 Ml MC BID 11/19/20 Reported Silvadene (Silver Sulfadiazine) 20 Gm Cream..g. 1 Ela TP DAILY 7 11/19/20 Reported apply to affected area(s) Zoloft (Sertraline Hcl) 50 Mg Tablet 1 Tab PO DAILY 11/19/20 Reported Pantoprazole Sodium (Pantoprazole Sodium) 40 Mg Tablet.dr 40 Mg PO DAILYAC 11/19/20 Reported Midodrine Hcl 10 Mg Tablet 10 Mg PO TID 11/19/20 Reported Melatonin 5 Mg Tab.ir.er 1 Tab PO QHS 30 11/19/20 Reported [megase 400 daily] DAILY 11/19/20 Reported Levemir (Insulin Detemir) 100 Unit/1 Ml Vial 4 Unit SQ HS 11/19/20 Reported FENTANYL 12mcg/hr (Fentanyl) 1 Each Patch.td72 1 Patch TP Q3DAYS 11/19/20 Reported Procrit (Epoetin Anirudh) 20,000 Unit/1 Ml Vial 4,000 Unit IJ MWF 11/19/20 Reported Colace (Docusate Sodium) 100 Mg Capsule 1 Cap PO BID 30 11/19/20 Reported Claritin (Loratadine) 10 Mg Capsule 1 Cap PO DAILY 30 11/19/20 Reported Carbidopa-Levodopa 25-100 Tab (Carbidopa/Levodopa) 1 Each Tablet 1 Each PO DAILY 11/19/20 Reported Atorvastatin Calcium 40 Mg Tablet 1 Tab PO QHS 11/19/20 Reported Tom Packet (Argin/Glut/Cahmb/Collag/Mv-Min) 1 Each Powd.pack 1 Each PO BID 11/19/20 Reported [ferric] 125 Mg IV 11/19/20 Reported Vancomycin 750 mg/150 ml Bag (Vancomycin/Water For Inj (Peg)) 750 Mg/150 Ml Piggyback 500 Mg IV QMWF 11/19/20 Reported Impression . IMPRESSION: 1. Abnormal x-ray revealing large left-sided effusion, suspect transudative. 2. End-stage renal disease, on hemodialysis. Nonfunctional hemodialysis catheter. 3. Peripheral vascular disease, status post bilateral above-knee amputation. 4. History of VRE. 5. Constipation. 6. Hypertension. 7. Tobacco dependence, in remission. 8. Sacral decubiti ulcers. 9. Leukocytosis. History of E. coli extended spectrum beta lactamase bacteremia at [facility]. Patient was discharged to [facility] to complete antibiotic treatment through November 25, 2020 Plan . PLAN: abx per id s/p s/p thoracentesis 1350 evacuated. fu pleural fluid studies, exudate per pr serum ldh not ordered will order s/p hemodialysis catheter replacement discussed w rn, pt MORA RAMOS MD Nov 20, 2020 06:59
[2020-11-20 07:00] VITALS: BP 115/49
[2020-11-20 08:59] LABS: BASO # 0.1 x10^3/uL (0.0-0.2); BASO % 0 % (0-3); EOS # 0.3 x10^3/uL (0.0-0.7); EOS % 1 % (0-3); HEMATOCRIT 24.1 % (39.0-53.0); HEMOGLOBIN 7.8 g/dL (13.0-17.5); LYMPH # 1.4 x10^3/uL (1.0-4.8); LYMPH % 7 % (24-48); MEAN CORPUSCULAR HEMOGLOBIN 28 pg (25-35); MEAN CORPUSCULAR HGB CONC 32 g/dL (31-37); MEAN CORPUSCULAR VOLUME 86 fL (79-100); MONO % 5 % (0-9); NEUT # 16.2 x10^3/uL (1.8-7.7); NEUT % 85 % (31-73); PLATELET COUNT 502 x10^3/uL (140-400); RED BLOOD COUNT 2.81 x10^6/uL (4.30-5.70); RED CELL DISTRIBUTION WIDTH 16.1 % (11.5-14.5)
[2020-11-20 09:10] LABS: CALCIUM 8.2 mg/dL (8.5-10.1); CREATININE 1.7 mg/dL (0.7-1.3); MAGNESIUM 2.3 mg/dL (1.8-2.4); PHOSPHORUS 3.1 mg/dL (2.6-4.7); POTASSIUM 4.2 mmol/L (3.5-5.1)
[2020-11-20] MEDS: MEROPENEM 500 MG in IV NORMAL SALINE 50ML 50 ML IV SCH (09:39)
[2020-11-20] MEDS: LACTOBACILLUS RHAMNOSUS GG 1 CAPSULE. PO SCH ×2 (09:39→20:32)
--- NOTE | 2020-11-20 10:24 | PDOC ---
Infectious Disease Note Subjective: Subjective Patient resting quietly There is post HDC removal and new HDC placement Status post thoracocentesis No fevers, nausea, vomiting, diarrhea, abdominal pain Vital Signs: Vital Signs Vital Signs Date Time Temp Pulse Resp B/P (MAP) Pulse Ox O2 Delivery O2 Flow Rate FiO2 11/20/20 07:00 98.5 92 18 115/49 (71) 98 Room Air 98.5 11/19/20 17:20 2.0 Physical Exam: PHYSICAL EXAM GENERAL: Alert, awake male lying in bed comfortably, in no acute distress, HEENT: Normocephalic, atraumatic, anicteric. No thrush. NECK: Supple. LUNGS: Decreased breath sound at the bases, left greater than right. No wheezing. No accessory muscle use. HEART: S1, S2. ABDOMEN: Colostomy in left lower quadrant appears to be functioning, some blood in it, no distension. Bowel sounds present. 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 NEUROLOGIC: Weak, alert and awake. PSYCHIATRIC: Depressed. DERMATOLOGIC: No generalized rash. Wound was not assessed today. HDC replaced Medications: Inpatient Meds: Current Medications Medications (Trade) Dose Ordered Sig/Patrick Start Time Stop Time Status Last Admin Dose Admin Darbepoetin Anirudh (ARANESP for DIALYSIS PTS) 60 mcg WEEKLYHS 11/19/20 21:00 11/19/20 22:31 60 MCG Fentanyl Citrate (Fentanyl 2ml Vial) 100 mcg 1X ONCE 11/19/20 14:30 11/19/20 14:38 DC Info (PHARMACY MONITORING -- do not chart) 1 each PRN DAILY PRN 11/19/20 19:00 11/19/20 19:04 DC Lactobacillus Rhamnosus (Culturelle) 1 cap BID 11/19/20 21:00 11/20/20 09:39 1 CAP Lidocaine HCl (Buffered Lidocaine 1%) 3 ml 1X ONCE 11/19/20 14:30 11/19/20 14:38 DC Lidocaine/ Epinephrine (LIDOCAINE 2%-EPI 1:100,000 multi-dose) 20 ml 1X ONCE 11/19/20 14:30 11/19/20 14:38 DC Meropenem 500 mg/ Sodium Chloride 50 ml @ 100 mls/hr DAILY 11/20/20 09:00 11/20/20 09:39 100 MLS/HR Midazolam HCl (Versed) 2 mg 1X ONCE 11/19/20 14:30 11/19/20 14:38 DC Oxycodone/ Acetaminophen (Percocet 5/325) 1 tab PRN Q4HRS PRN 11/18/20 17:45 11/19/20 19:49 1 TAB Piperacillin Sod/ Tazobactam Sod (Zosyn Per Pharmacy) 1 each PRN DAILY PRN 11/18/20 12:30 11/19/20 21:11 DC Piperacillin Sod/ Tazobactam Sod 2.25 gm/Sodium Chloride 50 ml @ 100 mls/hr Q6HRS 11/18/20 13:00 11/19/20 13:17 DC 11/19/20 06:32 100 MLS/HR Vancomycin HCl (Vanco Per Pharmacy) 1 each PRN DAILY PRN 11/19/20 13:30 11/19/20 21:10 1 EACH Vancomycin HCl (Vancomycin Random Level) 1 each 1X ONCE 11/24/20 06:00 11/24/20 06:01 Vancomycin HCl 1.25 gm/Sodium Chloride 250 ml @ 166.667 mls/hr 1X ONCE 11/19/20 13:45 11/19/20 15:14 DC 11/19/20 13:30 166.667 MLS/HR Vancomycin HCl 500 mg/Sodium Chloride 100 ml @ 100 mls/hr QMWF 11/22/20 16:00 Labs: Lab Laboratory Tests Test 11/19/20 11:46 11/19/20 14:30 11/19/20 19:40 11/20/20 07:20 Glucose (Fingerstick) 154 mg/dL (70-99) 117 mg/dL (70-99) 130 mg/dL (70-99) Body Fluid pH 7.55 Body Fluid Total Protein 3.5 g/dL (.) Body Fluid Lactate Dehydrogenase 148 IU/L (.) Test 11/20/20 08:30 White Blood Count 19.0 x10^3/uL (4.0-11.0) Red Blood Count 2.81 x10^6/uL (4.30-5.70) Hemoglobin 7.8 g/dL (13.0-17.5) Hematocrit 24.1 % (39.0-53.0) Mean Corpuscular Volume 86 fL (79-100) Mean Corpuscular Hemoglobin 28 pg (25-35) Mean Corpuscular Hemoglobin Concent 32 g/dL (31-37) Red Cell Distribution Width 16.1 % (11.5-14.5) Platelet Count 502 x10^3/uL (140-400) Neutrophils (%) (Auto) 85 % (31-73) Lymphocytes (%) (Auto) 7 % (24-48) Monocytes (%) (Auto) 5 % (0-9) Eosinophils (%) (Auto) 1 % (0-3) Basophils (%) (Auto) 0 % (0-3) Neutrophils # (Auto) 16.2 x10^3/uL (1.8-7.7) Lymphocytes # (Auto) 1.4 x10^3/uL (1.0-4.8) Monocytes # (Auto) 1.0 x10^3/uL (0.0-1.1) Eosinophils # (Auto) 0.3 x10^3/uL (0.0-0.7) Basophils # (Auto) 0.1 x10^3/uL (0.0-0.2) Sodium Level 140 mmol/L (136-145) Potassium Level 4.2 mmol/L (3.5-5.1) Chloride Level 102 mmol/L (98-107) Carbon Dioxide Level 28 mmol/L (21-32) Anion Gap 10 (6-14) Blood Urea Nitrogen 38 mg/dL (8-26) Creatinine 1.7 mg/dL (0.7-1.3) Estimated GFR (Cockcroft-Gault) 49.0 Glucose Level 121 mg/dL (70-99) Calcium Level 8.2 mg/dL (8.5-10.1) Phosphorus Level 3.1 mg/dL (2.6-4.7) Magnesium Level 2.3 mg/dL (1.8-2.4) Objective: Assessment: Leukocytosis persists likely reactive 1. History of E. coli extended spectrum beta lactamase bacteremia at [facility]. Patient was discharged to [facility] to complete antibiotic treatment through November 25, 2020 2. Left pleural effusion. Status post thoracocentesis 3 hemodialysis catheter dysfunction status post removal with new HDC placement 4. Multiple unstageable stage 4 pressure ulcers to sacrum right and left ischium and left trochanter with history of osteomyelitis. 5. Anemia. Leukocytosis 6. End-stage renal disease, on hemodialysis. 7. Generalized debility. 8. History of right upper extremity deep venous thrombosis. 9. Anemia. 10. Pneumothorax, resolved. 11. Diabetes mellitus 2. 12. Severe malnutrition. 13. Diverting colostomy. Plan: Plan of Care Continue Merrem Continue IV Vanco Monitor cultures Monitor labs Continue local wound care. Continue supportive care. Prognosis poor Discussed with RAMIRO ALMANZAR MD Nov 20, 2020 10:24
--- NOTE | 2020-11-20 10:30 | PDOC ---
[employer] PROGRESS NOTE Date of Service DOS: DATE: 11/20/20 TIME: 10:27 Chief Complaint Chief Complaint Left pleural effusion status post thoracentesis on 11/19/2020 with 1.3 L fluid removed Malfunctioning dialysis catheter exchanged 11/20/2020 Reactive leukocytosis Chronic anemia due to ESRD Severe protein malnutrition Continue medicine management Continue with HD with nephrology Continue with empiric IV antibiotics per ID Pending blood and urine cultures Heparin for DVT prophylaxis ADA diet Full code Discussed with RN and SW Disposition inpatient management as above, anticipate discharge in the next 24 to 48 hours Surrogate decision maker is Luli Menendez History of Present Illness History of Present Illness 11/20/2020 No acute events overnight. Patient is saturating well on room air. Without any dyspnea. HD catheter was revised and exchanged and thoracentesis completed with 1.3 L fluid removed. So far pleural fluid status appears to be transudate of. Patient's chart, labs, images were reviewed and discussed with RN 11/19/2020 No acute events overnight. Patient remains afebrile. Pending thoracentesis today and revision of this dialysis catheter. Patient's chart, labs, images were reviewed and discussed with RN The patient is a pleasant elderly male who has had a complex recent past history. Basically on 10/19/2020, he was admitted to [facility] for management of wounds and sepsis. He had been recently admitted to [facility] on 10/08/2020 where he was treated for osteomyelitis. He is a dialysis patient. He has had a recent upper extremity DVT for which he has been on Coumadin. I have initially noted he does have bilateral [id number] amputations. He also has a colostomy on the left. He states he has some chronic cancer but is not sure what it is. He was recently transfused because of her hemoglobin is low at 6.2. He had recent colonoscopies and endoscopies, which were negative. On 09/23/2020, he had a dialysis catheter removed and replaced on 10/08/2020. Apparently, he developed a large right pneumothorax after that procedure and a chest tube had to be placed. The tube was there for about 4 days from 10/11/2020 to 10/15/2020. He seems to have chronic elevation of his troponins and that is likely secondary to his chronic renal insufficiency. He has multiple wounds. He has been sent here today to our Emergency Room by Dr. Weems of the pulmonary service at [facility] because the patient has a pleural effusion and his dialysis catheter was malfunctioning Vitals/I&O Vitals/I&O: Vital Signs Date Time Temp Pulse Resp B/P (MAP) Pulse Ox O2 Delivery O2 Flow Rate FiO2 11/20/20 07:00 98.5 92 18 115/49 (71) 98 Room Air 98.5 11/19/20 17:20 2.0 I & O 11/19/20 11/19/20 11/20/20 15:00 23:00 07:00 Intake Total 50 ml 120 ml 60 ml Output Total 1350 ml Balance 50 ml -1230 ml 60 ml Physical Exam General: Alert, Oriented X3, Cooperative Heart: Regular rate Abdomen: Normal bowel sounds Extremities: No clubbing Skin: No breakdown Labs Labs: Laboratory Tests Test 11/19/20 11:46 11/19/20 14:30 11/19/20 19:40 11/20/20 07:20 Glucose (Fingerstick) 154 mg/dL (70-99) 117 mg/dL (70-99) 130 mg/dL (70-99) Body Fluid pH 7.55 Body Fluid Total Protein 3.5 g/dL (.) Body Fluid Lactate Dehydrogenase 148 IU/L (.) Test 11/20/20 08:30 White Blood Count 19.0 x10^3/uL (4.0-11.0) Red Blood Count 2.81 x10^6/uL (4.30-5.70) Hemoglobin 7.8 g/dL (13.0-17.5) Hematocrit 24.1 % (39.0-53.0) Mean Corpuscular Volume 86 fL (79-100) Mean Corpuscular Hemoglobin 28 pg (25-35) Mean Corpuscular Hemoglobin Concent 32 g/dL (31-37) Red Cell Distribution Width 16.1 % (11.5-14.5) Platelet Count 502 x10^3/uL (140-400) Neutrophils (%) (Auto) 85 % (31-73) Lymphocytes (%) (Auto) 7 % (24-48) Monocytes (%) (Auto) 5 % (0-9) Eosinophils (%) (Auto) 1 % (0-3) Basophils (%) (Auto) 0 % (0-3) Neutrophils # (Auto) 16.2 x10^3/uL (1.8-7.7) Lymphocytes # (Auto) 1.4 x10^3/uL (1.0-4.8) Monocytes # (Auto) 1.0 x10^3/uL (0.0-1.1) Eosinophils # (Auto) 0.3 x10^3/uL (0.0-0.7) Basophils # (Auto) 0.1 x10^3/uL (0.0-0.2) Sodium Level 140 mmol/L (136-145) Potassium Level 4.2 mmol/L (3.5-5.1) Chloride Level 102 mmol/L (98-107) Carbon Dioxide Level 28 mmol/L (21-32) Anion Gap 10 (6-14) Blood Urea Nitrogen 38 mg/dL (8-26) Creatinine 1.7 mg/dL (0.7-1.3) Estimated GFR (Cockcroft-Gault) 49.0 Glucose Level 121 mg/dL (70-99) Calcium Level 8.2 mg/dL (8.5-10.1) Phosphorus Level 3.1 mg/dL (2.6-4.7) Magnesium Level 2.3 mg/dL (1.8-2.4) Assessment and Plan Assessmemt and Plan Problems Medical Problems: (1) Dialysis catheter clot or failure Status: Acute (2) ESRD (end stage renal disease) on dialysis Status: Acute (3) Pleural effusion on left Status: Acute Comment Review of Relevant I have reviewed the following items ruby (where applicable) has been applied. Medications: Current Medications Medications (Trade) Dose Ordered Sig/Patrick Route PRN Reason Start Time Stop Time Status Last Admin Dose Admin Darbepoetin Anirudh (ARANESP for DIALYSIS PTS) 60 mcg WEEKLYHS SQ 11/19/20 21:00 11/19/20 22:31 Meropenem 500 mg/ Sodium Chloride 50 ml @ 100 mls/hr DAILY IV 11/20/20 09:00 11/20/20 09:39 Vancomycin HCl (Vanco Per Pharmacy) 1 each PRN DAILY PRN MC SEE COMMENTS 11/19/20 13:30 11/19/20 21:10 Vancomycin HCl 1.25 gm/Sodium Chloride 250 ml @ 166.667 mls/hr 1X ONCE IV 11/19/20 13:45 11/19/20 15:14 DC 11/19/20 13:30 Lactobacillus Rhamnosus (Culturelle) 1 cap BID PO 11/19/20 21:00 11/20/20 09:39 Justifications for Admission Other Justification ADRYAN BOUDREAUX MD Nov 20, 2020 10:30
[2020-11-20 10:33] VITALS: BP 122/58
[2020-11-20] MEDS: VANCOMYCIN PER PHARMACY MC PRN (13:41)
[2020-11-20 15:00] VITALS: BP 126/52
[2020-11-20 19:00] VITALS: BP 129/60
[2020-11-20] MEDS: oxyCODONE/APAP 5/325 1 TAB TABLET PO PRN (20:31)
[2020-11-20 23:00] VITALS: BP 120/62
[2020-11-21] MEDS: oxyCODONE/APAP 5/325 1 TAB TABLET PO PRN ×2 (01:34→19:46)
[2020-11-21 03:00] VITALS: BP 126/70
[2020-11-21 07:00] VITALS: BP 152/66
--- NOTE | 2020-11-21 07:14 | PDOC ---
PULMONARY PROGRESS NOTES DATE: 11/21/20 TIME: 07:11 Subjective on RA sob better, denies cough, pain s/p thoracentesis 11/19, 1350 evacuated. Vitals Vital Signs Date Time Temp Pulse Resp B/P (MAP) Pulse Ox O2 Delivery O2 Flow Rate FiO2 11/21/20 03:00 98.6 84 18 126/70 (88) 100 Room Air 98.6 ROS: No Nausea General: Alert HEENT: Other (nc at ) Lungs: Crackles Cardiovascular: S1, S2 Abdomen: Soft, Non-tender Neuro Exam: Alert Extremities: No Edema Skin: Warm Labs Laboratory Tests Test 11/19/20 07:15 11/19/20 11:46 11/19/20 14:30 11/19/20 19:40 Glucose (Fingerstick) 209 mg/dL (70-99) 154 mg/dL (70-99) 117 mg/dL (70-99) Body Fluid pH 7.55 Body Fluid Total Protein 3.5 g/dL (.) Body Fluid Lactate Dehydrogenase 148 IU/L (.) Test 11/20/20 07:20 11/20/20 08:30 11/20/20 11:26 11/20/20 16:28 Glucose (Fingerstick) 130 mg/dL (70-99) 221 mg/dL (70-99) 145 mg/dL (70-99) White Blood Count 19.0 x10^3/uL (4.0-11.0) Red Blood Count 2.81 x10^6/uL (4.30-5.70) Hemoglobin 7.8 g/dL (13.0-17.5) Hematocrit 24.1 % (39.0-53.0) Mean Corpuscular Volume 86 fL (79-100) Mean Corpuscular Hemoglobin 28 pg (25-35) Mean Corpuscular Hemoglobin Concent 32 g/dL (31-37) Red Cell Distribution Width 16.1 % (11.5-14.5) Platelet Count 502 x10^3/uL (140-400) Neutrophils (%) (Auto) 85 % (31-73) Lymphocytes (%) (Auto) 7 % (24-48) Monocytes (%) (Auto) 5 % (0-9) Eosinophils (%) (Auto) 1 % (0-3) Basophils (%) (Auto) 0 % (0-3) Neutrophils # (Auto) 16.2 x10^3/uL (1.8-7.7) Lymphocytes # (Auto) 1.4 x10^3/uL (1.0-4.8) Monocytes # (Auto) 1.0 x10^3/uL (0.0-1.1) Eosinophils # (Auto) 0.3 x10^3/uL (0.0-0.7) Basophils # (Auto) 0.1 x10^3/uL (0.0-0.2) Sodium Level 140 mmol/L (136-145) Potassium Level 4.2 mmol/L (3.5-5.1) Chloride Level 102 mmol/L (98-107) Carbon Dioxide Level 28 mmol/L (21-32) Anion Gap 10 (6-14) Blood Urea Nitrogen 38 mg/dL (8-26) Creatinine 1.7 mg/dL (0.7-1.3) Estimated GFR (Cockcroft-Gault) 49.0 Glucose Level 121 mg/dL (70-99) Calcium Level 8.2 mg/dL (8.5-10.1) Phosphorus Level 3.1 mg/dL (2.6-4.7) Magnesium Level 2.3 mg/dL (1.8-2.4) Lactate Dehydrogenase 134 U/L (85-227) Laboratory Tests Test 11/20/20 07:20 11/20/20 08:30 11/20/20 11:26 11/20/20 16:28 Glucose (Fingerstick) 130 mg/dL (70-99) 221 mg/dL (70-99) 145 mg/dL (70-99) White Blood Count 19.0 x10^3/uL (4.0-11.0) Red Blood Count 2.81 x10^6/uL (4.30-5.70) Hemoglobin 7.8 g/dL (13.0-17.5) Hematocrit 24.1 % (39.0-53.0) Mean Corpuscular Volume 86 fL (79-100) Mean Corpuscular Hemoglobin 28 pg (25-35) Mean Corpuscular Hemoglobin Concent 32 g/dL (31-37) Red Cell Distribution Width 16.1 % (11.5-14.5) Platelet Count 502 x10^3/uL (140-400) Neutrophils (%) (Auto) 85 % (31-73) Lymphocytes (%) (Auto) 7 % (24-48) Monocytes (%) (Auto) 5 % (0-9) Eosinophils (%) (Auto) 1 % (0-3) Basophils (%) (Auto) 0 % (0-3) Neutrophils # (Auto) 16.2 x10^3/uL (1.8-7.7) Lymphocytes # (Auto) 1.4 x10^3/uL (1.0-4.8) Monocytes # (Auto) 1.0 x10^3/uL (0.0-1.1) Eosinophils # (Auto) 0.3 x10^3/uL (0.0-0.7) Basophils # (Auto) 0.1 x10^3/uL (0.0-0.2) Sodium Level 140 mmol/L (136-145) Potassium Level 4.2 mmol/L (3.5-5.1) Chloride Level 102 mmol/L (98-107) Carbon Dioxide Level 28 mmol/L (21-32) Anion Gap 10 (6-14) Blood Urea Nitrogen 38 mg/dL (8-26) Creatinine 1.7 mg/dL (0.7-1.3) Estimated GFR (Cockcroft-Gault) 49.0 Glucose Level 121 mg/dL (70-99) Calcium Level 8.2 mg/dL (8.5-10.1) Phosphorus Level 3.1 mg/dL (2.6-4.7) Magnesium Level 2.3 mg/dL (1.8-2.4) Lactate Dehydrogenase 134 U/L (85-227) Medications Active Scripts Medications Dose Route/Sig Max Daily Dose Days Date Category Dose Instructions Percocet 5-325 Mg Tablet (Oxycodone/Acetaminophen) 1 Each Tablet 1 Tab PO Q4HRS PRN MDD 4 Tablet(s) 30 11/19/20 Reported Acetaminophen 325 Mg Tablet 650 Mg PO PRN Q6HRS PRN 11/19/20 Reported Dakin's (Sodium Hypochlorite) 473 Ml Solution 473 Ml MC BID 11/19/20 Reported Silvadene (Silver Sulfadiazine) 20 Gm Cream..g. 1 Ela TP DAILY 7 11/19/20 Reported apply to affected area(s) Zoloft (Sertraline Hcl) 50 Mg Tablet 1 Tab PO DAILY 11/19/20 Reported Pantoprazole Sodium (Pantoprazole Sodium) 40 Mg Tablet.dr 40 Mg PO DAILYAC 11/19/20 Reported Midodrine Hcl 10 Mg Tablet 10 Mg PO TID 11/19/20 Reported Melatonin 5 Mg Tab.ir.er 1 Tab PO QHS 30 11/19/20 Reported [megase 400 daily] DAILY 11/19/20 Reported Levemir (Insulin Detemir) 100 Unit/1 Ml Vial 4 Unit SQ HS 11/19/20 Reported FENTANYL 12mcg/hr (Fentanyl) 1 Each Patch.td72 1 Patch TP Q3DAYS 11/19/20 Reported Procrit (Epoetin Anirudh) 20,000 Unit/1 Ml Vial 4,000 Unit IJ MWF 11/19/20 Reported Colace (Docusate Sodium) 100 Mg Capsule 1 Cap PO BID 30 11/19/20 Reported Claritin (Loratadine) 10 Mg Capsule 1 Cap PO DAILY 30 11/19/20 Reported Carbidopa-Levodopa 25-100 Tab (Carbidopa/Levodopa) 1 Each Tablet 1 Each PO DAILY 11/19/20 Reported Atorvastatin Calcium 40 Mg Tablet 1 Tab PO QHS 11/19/20 Reported Tom Packet (Argin/Glut/Cahmb/Collag/Mv-Min) 1 Each Powd.pack 1 Each PO BID 11/19/20 Reported [ferric] 125 Mg IV 11/19/20 Reported Vancomycin 750 mg/150 ml Bag (Vancomycin/Water For Inj (Peg)) 750 Mg/150 Ml Piggyback 500 Mg IV QMWF 11/19/20 Reported Impression . IMPRESSION: 1. Abnormal x-ray revealing large left-sided effusion, exudate 2. End-stage renal disease, on hemodialysis. Nonfunctional hemodialysis catheter. 3. Peripheral vascular disease, status post bilateral above-knee amputation. 4. History of VRE. 5. Constipation. 6. Hypertension. 7. Tobacco dependence, in remission. 8. Sacral decubiti ulcers. 9. Leukocytosis. History of E. coli extended spectrum beta lactamase bacteremia at [facility]. Patient was discharged to [facility] to complete antibiotic treatment through November 25, 2020 Plan . PLAN: abx per id s/p s/p thoracentesis 1350 evacuated. fu pleural fluid studies, exudate s/p hemodialysis catheter replacement hd per nephro hep for dvt prophylaxis am cxr discussed w rn, pt MORA RAMOS MD Nov 21, 2020 07:14
--- NOTE | 2020-11-21 07:59 | PDOC ---
Infectious Disease Note Subjective: Subjective Patient without complaints Denies fevers, nausea, vomiting, diarrhea, abdominal pain Vital Signs: Vital Signs Vital Signs Date Time Temp Pulse Resp B/P (MAP) Pulse Ox O2 Delivery O2 Flow Rate FiO2 11/21/20 03:00 98.6 84 18 126/70 (88) 100 Room Air 98.6 Physical Exam: PHYSICAL EXAM GENERAL: Alert, awake male lying in bed comfortably, in no acute distress, HEENT: Normocephalic, atraumatic, anicteric. No thrush. NECK: Supple. LUNGS: Decreased breath sound at the bases, left greater than right. No wheezing. No accessory muscle use. HEART: S1, S2. ABDOMEN: Colostomy in left lower quadrant appears to be functioning, some blood in it, no distension. Bowel sounds present. 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 NEUROLOGIC: Weak, alert and awake. PSYCHIATRIC: Depressed. DERMATOLOGIC: No generalized rash. Wound was not assessed today. HDC replaced Medications: Inpatient Meds: Current Medications Medications (Trade) Dose Ordered Sig/Patrick Start Time Stop Time Status Last Admin Dose Admin Darbepoetin Anirudh (ARANESP for DIALYSIS PTS) 60 mcg WEEKLYHS 11/19/20 21:00 11/19/20 22:31 60 MCG Fentanyl Citrate (Fentanyl 2ml Vial) 100 mcg 1X ONCE 11/19/20 14:30 11/19/20 14:38 DC Info (PHARMACY MONITORING -- do not chart) 1 each PRN DAILY PRN 11/19/20 19:00 11/19/20 19:04 DC Lactobacillus Rhamnosus (Culturelle) 1 cap BID 11/19/20 21:00 11/20/20 20:32 1 CAP Lidocaine HCl (Buffered Lidocaine 1%) 3 ml 1X ONCE 11/19/20 14:30 11/19/20 14:38 DC Lidocaine/ Epinephrine (LIDOCAINE 2%-EPI 1:100,000 multi-dose) 20 ml 1X ONCE 11/19/20 14:30 11/19/20 14:38 DC Meropenem 500 mg/ Sodium Chloride 50 ml @ 100 mls/hr DAILY 11/20/20 09:00 11/20/20 09:39 100 MLS/HR Midazolam HCl (Versed) 2 mg 1X ONCE 11/19/20 14:30 11/19/20 14:38 DC Oxycodone/ Acetaminophen (Percocet 5/325) 1 tab PRN Q4HRS PRN 11/18/20 17:45 11/21/20 01:34 1 TAB Piperacillin Sod/ Tazobactam Sod (Zosyn Per Pharmacy) 1 each PRN DAILY PRN 11/18/20 12:30 11/19/20 21:11 DC Piperacillin Sod/ Tazobactam Sod 2.25 gm/Sodium Chloride 50 ml @ 100 mls/hr Q6HRS 11/18/20 13:00 11/19/20 13:17 DC 11/19/20 06:32 100 MLS/HR Vancomycin HCl (Vanco Per Pharmacy) 1 each PRN DAILY PRN 11/19/20 13:30 11/20/20 13:41 1 EACH Vancomycin HCl (Vancomycin Random Level) 1 each 1X ONCE 11/24/20 06:00 11/24/20 06:01 Vancomycin HCl 1.25 gm/Sodium Chloride 250 ml @ 166.667 mls/hr 1X ONCE 11/19/20 13:45 11/19/20 15:14 DC 11/19/20 13:30 166.667 MLS/HR Vancomycin HCl 500 mg/Sodium Chloride 100 ml @ 100 mls/hr QMWF 11/22/20 16:00 Labs: Lab Laboratory Tests Test 11/20/20 08:30 11/20/20 11:26 11/20/20 16:28 White Blood Count 19.0 x10^3/uL (4.0-11.0) Red Blood Count 2.81 x10^6/uL (4.30-5.70) Hemoglobin 7.8 g/dL (13.0-17.5) Hematocrit 24.1 % (39.0-53.0) Mean Corpuscular Volume 86 fL (79-100) Mean Corpuscular Hemoglobin 28 pg (25-35) Mean Corpuscular Hemoglobin Concent 32 g/dL (31-37) Red Cell Distribution Width 16.1 % (11.5-14.5) Platelet Count 502 x10^3/uL (140-400) Neutrophils (%) (Auto) 85 % (31-73) Lymphocytes (%) (Auto) 7 % (24-48) Monocytes (%) (Auto) 5 % (0-9) Eosinophils (%) (Auto) 1 % (0-3) Basophils (%) (Auto) 0 % (0-3) Neutrophils # (Auto) 16.2 x10^3/uL (1.8-7.7) Lymphocytes # (Auto) 1.4 x10^3/uL (1.0-4.8) Monocytes # (Auto) 1.0 x10^3/uL (0.0-1.1) Eosinophils # (Auto) 0.3 x10^3/uL (0.0-0.7) Basophils # (Auto) 0.1 x10^3/uL (0.0-0.2) Sodium Level 140 mmol/L (136-145) Potassium Level 4.2 mmol/L (3.5-5.1) Chloride Level 102 mmol/L (98-107) Carbon Dioxide Level 28 mmol/L (21-32) Anion Gap 10 (6-14) Blood Urea Nitrogen 38 mg/dL (8-26) Creatinine 1.7 mg/dL (0.7-1.3) Estimated GFR (Cockcroft-Gault) 49.0 Glucose Level 121 mg/dL (70-99) Calcium Level 8.2 mg/dL (8.5-10.1) Phosphorus Level 3.1 mg/dL (2.6-4.7) Magnesium Level 2.3 mg/dL (1.8-2.4) Lactate Dehydrogenase 134 U/L (85-227) Glucose (Fingerstick) 221 mg/dL (70-99) 145 mg/dL (70-99) Objective: Assessment: Leukocytosis persists likely reactive History of E. coli extended spectrum beta lactamase bacteremia at [facility]. Patient was discharged to [facility] to complete antibiotic treatment through November 25, 2020 Left pleural effusion. Status post thoracocentesis,transudative Hemodialysis catheter dysfunction status post removal with new HDC placement , BC neg Multiple unstageable stage 4 pressure ulcers to sacrum right and left ischium and left trochanter with history of osteomyelitis. Anemia. End-stage renal disease, on hemodialysis. Generalized debility. History of right upper extremity deep venous thrombosis. h/o Pneumothorax, resolved. Diabetes mellitus 2. Severe malnutrition. Diverting colostomy. H/O AKA Plan: Plan of Care Continue Merrem and IV Vanco,renal dosing Monitor cultures Monitor labs Continue local wound care. Continue supportive care. labs in am may need repeat imaging CT A/P for evaluation of stage 4 sacral wound Prognosis poor Discussed with RAMIOR ALMANZAR MD Nov 21, 2020 07:59
[2020-11-21] MEDS: MEROPENEM 500 MG in IV NORMAL SALINE 50ML 50 ML IV SCH (10:00)
[2020-11-21] MEDS: LACTOBACILLUS RHAMNOSUS GG 1 CAPSULE. PO SCH ×2 (10:01→19:47)
--- NOTE | 2020-11-21 10:56 | PDOC ---
PROGRESS NOTES Date of Service: DATE: 11/21/20 TIME: 10:55 Chief Complaint Chief Complaint IMPRESSION Left pleural effusion status post thoracentesis on 11/19/2020 with 1.3 L fluid removed Malfunctioning dialysis catheter exchanged 11/20/2020 Reactive leukocytosis Chronic anemia due to ESRD Severe protein malnutrition PLAN Continue medicine management Continue with HD with nephrology Continue with empiric IV antibiotics per ID Pending blood and urine cultures Heparin for DVT prophylaxis ADA diet Full code Discussed with RN and SW Disposition inpatient management as above, anticipate discharge in the next 24 to 48 hours Surrogate decision maker is Luli Menendez s/p thoracentesis 11/19, 1350 evacuated. History of Present Illness History of Present Illness 11/20/2020 No acute events overnight. Patient is saturating well on room air. Without any dyspnea. HD catheter was revised and exchanged and thoracentesis completed with 1.3 L fluid removed. So far pleural fluid status appears to be transudate of. Patient's chart, labs, images were reviewed and discussed with RN 11/19/2020 No acute events overnight. Patient remains afebrile. Pending thoracentesis today and revision of this dialysis catheter. Patient's chart, labs, images were reviewed and discussed with RN The patient is a pleasant elderly male who has had a complex recent past history. Basically on 10/19/2020, he was admitted to [facility] for management of wounds and sepsis. He had been recently admitted to [facility] on 10/08/2020 where he was treated for osteomyelitis. He is a dialysis patient. He has had a recent upper extremity DVT for which he has been on Coumadin. I have initially noted he does have bilateral [id number] amputations. He also has a colostomy on the left. He states he has some chronic cancer but is not sure what it is. He was recently transfused because of her hemoglobin is low at 6.2. He had recent colonoscopies and endoscopies, which were negative. On 09/23/2020, he had a dialysis catheter removed and replaced on 10/08/2020. Apparently, he developed a large right pneumothorax after that procedure and a chest tube had to be placed. The tube was there for about 4 days from 10/11/2020 to 10/15/2020. He seems to have chronic elevation of his troponins and that is likely secondary to his chronic renal insufficiency. He has multiple wounds. He has been sent here today to our Emergency Room by Dr. Weems of the pulmonary service at [facility] because the patient has a pleural effusion and his dialysis catheter was malfunctioning Vitals Vitals Vital Signs Date Time Temp Pulse Resp B/P (MAP) Pulse Ox O2 Delivery O2 Flow Rate FiO2 11/21/20 07:00 98.3 81 18 152/66 (94) 99 Room Air 98.3 Physical Exam Physical Exam GENERAL: Alert, awake male lying in bed comfortably, in no acute distress, HEENT: Normocephalic, atraumatic, anicteric. No thrush. NECK: Supple. LUNGS: Decreased breath sound at the bases, left greater than right. No wheezing. No accessory muscle use. HEART: S1, S2. ABDOMEN: Colostomy in left lower quadrant appears to be functioning, some blood in it, no distension. Bowel sounds present. 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 NEUROLOGIC: Weak, alert and awake. PSYCHIATRIC: Depressed. DERMATOLOGIC: No generalized rash. Wound was not assessed today. HDC replaced General: Alert, Oriented X3, Cooperative Heart: Regular rate Lungs: Crackles Abdomen: Normal bowel sounds Extremities: No clubbing Skin: No breakdown Labs LABS Ultrasound Guided Thoracentesis, left side Indication: Adult male with left pleural fluid collection Sedation: Local anesthesia only. Sterility: The procedure was performed in its entirety using appropriate elements of sterile technique. Technique and Findings: Following informed consent, the patient was prepped and draped in the usual sterile fashion. Ultrasound interrogation of the area of interest was performed revealing the presence of a pleural fluid collection. 1% Lidocaine was used to achieve local anesthesia over the area of interest. A small dermatotomy was made and a 5F [id number] catheter was advanced under ultrasound guidance into the pleural space and 1350 cc's of clear tanner fluid was removed. The catheter was then removed and hemostasis was achieved with manual compression. Impression: US thoracentesis as described. DICTATED and SIGNED BY: BRIDGET FONSECA MD DATE: 11/19/20 [id number] Laboratory Tests Test 11/20/20 11:26 11/20/20 16:28 11/21/20 08:49 Glucose (Fingerstick) 221 mg/dL (70-99) 145 mg/dL (70-99) 179 mg/dL (70-99) Assessment and Plan Assessmemt and Plan Problems Medical Problems: (1) Dialysis catheter clot or failure Status: Acute (2) ESRD (end stage renal disease) on dialysis Status: Acute (3) Pleural effusion on left Status: Acute Comment Review of Relevant I have reviewed the following items ruby (where applicable) has been applied. Labs Laboratory Tests Test 11/19/20 11:46 11/19/20 14:30 11/19/20 19:40 11/20/20 07:20 Glucose (Fingerstick) 154 mg/dL (70-99) 117 mg/dL (70-99) 130 mg/dL (70-99) Body Fluid pH 7.55 Body Fluid Total Protein 3.5 g/dL (.) Body Fluid Lactate Dehydrogenase 148 IU/L (.) Test 11/20/20 08:30 11/20/20 11:26 11/20/20 16:28 11/21/20 08:49 White Blood Count 19.0 x10^3/uL (4.0-11.0) Red Blood Count 2.81 x10^6/uL (4.30-5.70) Hemoglobin 7.8 g/dL (13.0-17.5) Hematocrit 24.1 % (39.0-53.0) Mean Corpuscular Volume 86 fL (79-100) Mean Corpuscular Hemoglobin 28 pg (25-35) Mean Corpuscular Hemoglobin Concent 32 g/dL (31-37) Red Cell Distribution Width 16.1 % (11.5-14.5) Platelet Count 502 x10^3/uL (140-400) Neutrophils (%) (Auto) 85 % (31-73) Lymphocytes (%) (Auto) 7 % (24-48) Monocytes (%) (Auto) 5 % (0-9) Eosinophils (%) (Auto) 1 % (0-3) Basophils (%) (Auto) 0 % (0-3) Neutrophils # (Auto) 16.2 x10^3/uL (1.8-7.7) Lymphocytes # (Auto) 1.4 x10^3/uL (1.0-4.8) Monocytes # (Auto) 1.0 x10^3/uL (0.0-1.1) Eosinophils # (Auto) 0.3 x10^3/uL (0.0-0.7) Basophils # (Auto) 0.1 x10^3/uL (0.0-0.2) Sodium Level 140 mmol/L (136-145) Potassium Level 4.2 mmol/L (3.5-5.1) Chloride Level 102 mmol/L (98-107) Carbon Dioxide Level 28 mmol/L (21-32) Anion Gap 10 (6-14) Blood Urea Nitrogen 38 mg/dL (8-26) Creatinine 1.7 mg/dL (0.7-1.3) Estimated GFR (Cockcroft-Gault) 49.0 Glucose Level 121 mg/dL (70-99) Calcium Level 8.2 mg/dL (8.5-10.1) Phosphorus Level 3.1 mg/dL (2.6-4.7) Magnesium Level 2.3 mg/dL (1.8-2.4) Lactate Dehydrogenase 134 U/L (85-227) Glucose (Fingerstick) 221 mg/dL (70-99) 145 mg/dL (70-99) 179 mg/dL (70-99) Laboratory Tests Test 11/20/20 11:26 11/20/20 16:28 11/21/20 08:49 Glucose (Fingerstick) 221 mg/dL (70-99) 145 mg/dL (70-99) 179 mg/dL (70-99) Microbiology 11/19/20 Gram Stain - Final, Resulted 11/19/20 Aerobic and Anaerobic Culture - Preliminary, Resulted 11/18/20 Blood Culture - Preliminary, Resulted NO GROWTH AFTER 2 DAYS Medications Current Medications Piperacillin Sod/ Tazobactam Sod (Zosyn Per Pharmacy) 1 each PRN DAILY PRN MC SEE COMMENTS; Start 11/18/20 at 12:30; Stop 11/19/20 at 21:11; Status DC Piperacillin Sod/ Tazobactam Sod 2.25 gm/Sodium Chloride 50 ml @ 100 mls/hr Q6HRS IV Last administered on 11/19/20at 06:32; Start 11/18/20 at 13:00; Stop 11/19/20 at 13:17; Status DC Fentanyl Citrate (Fentanyl 2ml Vial) 50 mcg PRN Q2HR PRN IVP MODERATE TO SEVERE PAIN Last administered on 11/19/20at 20:43; Start 11/18/20 at 16:15 Fentanyl Citrate (Fentanyl 2ml Vial) 100 mcg STK-MED ONCE .ROUTE ; Start 11/18/20 at 16:05; Stop 11/18/20 at 16:05; Status DC Oxycodone/ Acetaminophen (Percocet 5/325) 1 tab PRN Q4HRS PRN PO PAIN Last administered on 11/21/20at 01:34; Start 11/18/20 at 17:45 Darbepoetin Anirudh (ARANESP for DIALYSIS PTS) 60 mcg WEEKLYHS SQ Last administered on 11/19/20at 22:31; Start 11/19/20 at 21:00 Meropenem 500 mg/ Sodium Chloride 50 ml @ 100 mls/hr DAILY IV Last administered on 11/21/20at 10:00; Start 11/20/20 at 09:00 Vancomycin HCl (Vanco Per Pharmacy) 1 each PRN DAILY PRN MC SEE COMMENTS Last administered on 11/20/20at 13:41; Start 11/19/20 at 13:30 Vancomycin HCl 1.25 gm/Sodium Chloride 250 ml @ 166.667 mls/hr 1X ONCE IV Last administered on 11/19/20at 13:30; Start 11/19/20 at 13:45; Stop 11/19/20 at 15:14; Status DC Lidocaine HCl (Buffered Lidocaine 1%) 3 ml STK-MED ONCE .ROUTE ; Start 11/19/20 at 13:53; Stop 11/19/20 at 13:53; Status DC Midazolam HCl (Versed) 2 mg STK-MED ONCE .ROUTE ; Start 11/19/20 at 14:09; Stop 11/19/20 at 14:09; Status DC Fentanyl Citrate (Fentanyl 2ml Vial) 100 mcg STK-MED ONCE .ROUTE ; Start 11/19/20 at 14:09; Stop 11/19/20 at 14:09; Status DC Lidocaine/ Epinephrine (LIDOCAINE 2%-EPI 1:100,000 multi-dose) 20 ml STK-MED ONCE .ROUTE ; Start 11/19/20 at 14:29; Stop 11/19/20 at 14:29; Status DC Lidocaine HCl (Buffered Lidocaine 1%) 3 ml 1X ONCE IJ ; Start 11/19/20 at 14:30; Stop 11/19/20 at 14:38; Status DC Midazolam HCl (Versed) 2 mg 1X ONCE IV ; Start 11/19/20 at 14:30; Stop 11/19/20 at 14:38; Status DC Fentanyl Citrate (Fentanyl 2ml Vial) 100 mcg 1X ONCE IV ; Start 11/19/20 at 14:30; Stop 11/19/20 at 14:38; Status DC Lidocaine/ Epinephrine (LIDOCAINE 2%-EPI 1:100,000 multi-dose) 20 ml 1X ONCE IJ ; Start 11/19/20 at 14:30; Stop 11/19/20 at 14:38; Status DC Vancomycin HCl 500 mg/Sodium Chloride 100 ml @ 100 mls/hr QMWF IV ; Start 11/22/20 at 16:00 Lactobacillus Rhamnosus (Culturelle) 1 cap BID PO Last administered on 11/21/20at 10:01; Start 11/19/20 at 21:00 Info (PHARMACY MONITORING -- do not chart) 1 each PRN DAILY PRN MC SEE COMMENTS; Start 11/19/20 at 19:00 Info (PHARMACY MONITORING -- do not chart) 1 each PRN DAILY PRN MC SEE COMMENTS ; Start 11/19/20 at 19:00; Stop 11/19/20 at 19:04; Status DC Vancomycin HCl (Vancomycin Random Level) 1 each 1X ONCE MC ; Start 11/24/20 at 06:00; Stop 11/24/20 at 06:01 Active Scripts Active Reported Percocet 5-325 Mg Tablet (Oxycodone/Acetaminophen) 1 Each Tablet 1 Tab PO Q4HRS PRN MDD 4 Tablet(s) 30 Days Acetaminophen 325 Mg Tablet 650 Mg PO PRN Q6HRS PRN Dakin's (Sodium Hypochlorite) 473 Ml Solution 473 Ml MC BID Silvadene (Silver Sulfadiazine) 20 Gm Cream..g. 1 Ela TP DAILY 7 Days apply to affected area(s) Zoloft (Sertraline Hcl) 50 Mg Tablet 1 Tab PO DAILY Pantoprazole Sodium (Pantoprazole Sodium) 40 Mg Tablet.dr 40 Mg PO DAILYAC Midodrine Hcl 10 Mg Tablet 10 Mg PO TID Melatonin 5 Mg Tab.ir.er 1 Tab PO QHS 30 Days [megase 400 daily] DAILY Levemir (Insulin Detemir) 100 Unit/1 Ml Vial 4 Unit SQ HS FENTANYL 12mcg/hr (Fentanyl) 1 Each Patch.td72 1 Patch TP Q3DAYS Procrit (Epoetin Anirudh) 20,000 Unit/1 Ml Vial 4,000 Unit IJ MWF Colace (Docusate Sodium) 100 Mg Capsule 1 Cap PO BID 30 Days Claritin (Loratadine) 10 Mg Capsule 1 Cap PO DAILY 30 Days Carbidopa-Levodopa 25-100 Tab (Carbidopa/Levodopa) 1 Each Tablet 1 Each PO DAILY Atorvastatin Calcium 40 Mg Tablet 1 Tab PO QHS Tom Packet (Argin/Glut/Cahmb/Collag/Mv-Min) 1 Each Powd.pack 1 Each PO BID [ferric] 125 Mg IV Vancomycin 750 mg/150 ml Bag (Vancomycin/Water For Inj (Peg)) 750 Mg/150 Ml Piggyback 500 Mg IV QMWF Vitals/I & O Vital Sign - Last 24 Hours 11/20/20 11/20/20 11/20/20 11/20/20 15:00 19:00 20:00 20:31 Temp 98.8 100.5 98.8 100.5 Pulse 96 93 Resp 18 20 16 B/P (MAP) 126/52 (76) 129/60 (83) Pulse Ox 98 100 98 O2 Delivery Room Air Room Air Room Air Room Air 11/20/20 11/20/20 11/21/20 11/21/20 21:31 23:00 01:34 02:34 Temp 98.4 98.4 Pulse 86 Resp 18 20 16 16 B/P (MAP) 120/62 (81) Pulse Ox 97 100 100 96 O2 Delivery Room Air Room Air Room Air Room Air 11/21/20 11/21/20 03:00 07:00 Temp 98.6 98.3 98.6 98.3 Pulse 84 81 Resp 18 18 B/P (MAP) 126/70 (88) 152/66 (94) Pulse Ox 100 99 O2 Delivery Room Air Room Air Intake and Output 11/20/20 11/20/20 11/21/20 15:00 23:00 07:00 Intake Total 300 ml 200 ml Balance 300 ml 200 ml Justicifation of Admission Dx: Justifications for Admission: Justification of Admission Dx: Yes Aspiration Pneumonia: Hemodynamic Instability Acute Renal Failure: RF Can't Be Managed Outpt Chronic Renal Failure: Metabolic Abnormality SERGIO CRAWLEY MD Nov 21, 2020 10:56
[2020-11-21 11:00] VITALS: BP 111/60
[2020-11-21] MEDS: VANCOMYCIN PER PHARMACY MC PRN (11:10)
[2020-11-21 15:00] VITALS: BP 154/70
[2020-11-21] MEDS: HEPARIN for SUB-Q USE 5,000 UNIT/ML VIAL. SQ SCH ×2 (15:00→21:03)
[2020-11-21] MEDS ORDERED: DEXTROSE 50% 25 GM / 50ML DISP.SYRIN. IV PRN (17:15)
[2020-11-21 17:18] LABS: ALBUMIN 1.6 g/dL (3.4-5.0); CALCIUM 8.3 mg/dL (8.5-10.1); CREATININE 2.6 mg/dL (0.7-1.3); PHOSPHORUS 4.2 mg/dL (2.6-4.7); POTASSIUM 4.5 mmol/L (3.5-5.1)
[2020-11-21] MEDS: INSULIN LISPRO 300 UNITS/3 ML VIAL. SQ SCH (18:08)
[2020-11-21 19:00] VITALS: BP 148/71
[2020-11-21] MEDS ORDERED: INSULIN GLARGINE SYRINGE. SQ SCH (21:00)
[2020-11-21 23:04] VITALS: BP 140/68
[2020-11-22 03:06] VITALS: BP 129/65
[2020-11-22] MEDS: oxyCODONE/APAP 5/325 1 TAB TABLET PO PRN ×2 (03:29→12:56)
[2020-11-22] MEDS: HEPARIN for SUB-Q USE 5,000 UNIT/ML VIAL. SQ SCH ×2 (05:34→16:44)
[2020-11-22 07:00] VITALS: BP 129/66
[2020-11-22] MEDS: INSULIN LISPRO 300 UNITS/3 ML VIAL. SQ SCH ×2 (08:00→12:00)
[2020-11-22 08:02] LABS: ALBUMIN 1.6 g/dL (3.4-5.0); ALBUMIN/GLOBULIN RATIO 0.4 (1.0-1.7); CALCIUM 8.2 mg/dL (8.5-10.1); CREATININE 2.5 mg/dL (0.7-1.3); GFR 31.4; POTASSIUM 4.9 mmol/L (3.5-5.1); TOTAL BILIRUBIN 0.3 mg/dL (0.2-1.0); TOTAL PROTEIN 5.8 g/dL (6.4-8.2)
[2020-11-22 08:10] LABS: BASO # 0.1 x10^3/uL (0.0-0.2); BASO % 1 % (0-3); EOS # 0.4 x10^3/uL (0.0-0.7); EOS % 3 % (0-3); HEMATOCRIT 26.9 % (39.0-53.0); HEMOGLOBIN 8.2 g/dL (13.0-17.5); LYMPH # 1.9 x10^3/uL (1.0-4.8); LYMPH % 13 % (24-48); MEAN CORPUSCULAR HEMOGLOBIN 28 pg (25-35); MEAN CORPUSCULAR HGB CONC 31 g/dL (31-37); MEAN CORPUSCULAR VOLUME 90 fL (79-100); MONO # 0.8 x10^3/uL (0.0-1.1); MONO % 6 % (0-9); NEUT % 77 % (31-73); PLATELET COUNT 355 x10^3/uL (140-400); RED BLOOD COUNT 2.98 x10^6/uL (4.30-5.70); RED CELL DISTRIBUTION WIDTH 16.7 % (11.5-14.5); WHITE BLOOD COUNT 14.2 x10^3/uL (4.0-11.0)
[2020-11-22] MEDS ORDERED: DIALYSIS PATIENT. MC PRN (08:30)
[2020-11-22] MEDS ORDERED: IV NORMAL SALINE 1000ML BAG 1,000 ML IV PRN ×2 (08:30)
--- NOTE | 2020-11-22 08:35 | RAD ---
EXAM: Chest, single view. HISTORY: Pleural effusion. COMPARISON: 11/19/2020 FINDINGS: A frontal view of the chest is obtained. There has been no change in small bilateral pleura l effusions, allowing for differences in patient positioning. There is stable diffuse lower lobe pred ominant interstitial opacity likely due to atelectasis or infiltrate. There is no consolidation. The heart is stable in size. There is a right internal jugular catheter with the tip in the right atrium. There is a left axillary stent. IMPRESSION: Stable small pleural effusions and diffuse increased interstitial opacity likely due to atelectasis o r interstitial infiltrate. Electronically signed by: Darleen Gutierrez MD (11/22/2020 8:33 AM) [id number]
--- NOTE | 2020-11-22 10:13 | PDOC ---
Infectious Disease Note Subjective: Subjective Patient undergoing dialysis Denies any complaints Denies fevers, nausea, vomiting, diarrhea, abdominal pain Vital Signs: Vital Signs Vital Signs Date Time Temp Pulse Resp B/P (MAP) Pulse Ox O2 Delivery O2 Flow Rate FiO2 11/22/20 07:00 97.8 76 16 129/66 (87) 100 Room Air 97.8 11/21/20 08:00 2.0 Physical Exam: PHYSICAL EXAM GENERAL: Alert, awake male lying in bed comfortably, in no acute distress, HEENT: Normocephalic, atraumatic, anicteric. No thrush. NECK: Supple. CHESTWALL RT HDC clean LUNGS: Decreased breath sound at the bases, No wheezing. No accessory muscle use. HEART: S1, S2. ABDOMEN: Colostomy in left lower quadrant appears to be functioning, some blood in it, no distension. Bowel sounds present. 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 NEUROLOGIC: Weak, alert and awake. PSYCHIATRIC: Depressed. DERMATOLOGIC: No generalized rash. Wound pics noted Medications: Inpatient Meds: Current Medications Medications (Trade) Dose Ordered Sig/Patrick Start Time Stop Time Status Last Admin Dose Admin Darbepoetin Anirudh (ARANESP for DIALYSIS PTS) 60 mcg WEEKLYHS 11/19/20 21:00 11/19/20 22:31 60 MCG Dextrose (Dextrose 50%-Water Syringe) 12.5 gm PRN Q15MIN PRN 11/21/20 17:15 Fentanyl Citrate (Fentanyl 2ml Vial) 100 mcg 1X ONCE 11/19/20 14:30 11/19/20 14:38 DC Heparin Sodium (Porcine) (Heparin Sodium) 5,000 unit Q8HRS 11/21/20 14:00 11/22/20 05:34 5,000 UNIT Info (PHARMACY MONITORING -- do not chart) 1 each PRN DAILY PRN 11/22/20 08:30 Insulin Glargine (Lantus Syringe) 4 unit QHS 11/21/20 21:00 11/21/20 21:02 4 UNIT Insulin Human Lispro (HumaLOG) 0-5 UNITS TIDWMEALS 11/21/20 18:00 11/21/20 18:08 5 UNITS Lactobacillus Rhamnosus (Culturelle) 1 cap BID 11/19/20 21:00 11/21/20 19:47 1 CAP Lidocaine HCl (Buffered Lidocaine 1%) 3 ml 1X ONCE 11/19/20 14:30 11/19/20 14:38 DC Lidocaine/ Epinephrine (LIDOCAINE 2%-EPI 1:100,000 multi-dose) 20 ml 1X ONCE 11/19/20 14:30 11/19/20 14:38 DC Meropenem 500 mg/ Sodium Chloride 50 ml @ 100 mls/hr DAILY 11/20/20 09:00 11/21/20 10:00 100 MLS/HR Midazolam HCl (Versed) 2 mg 1X ONCE 11/19/20 14:30 11/19/20 14:38 DC Oxycodone/ Acetaminophen (Percocet 5/325) 1 tab PRN Q4HRS PRN 11/18/20 17:45 11/22/20 03:29 1 TAB Piperacillin Sod/ Tazobactam Sod (Zosyn Per Pharmacy) 1 each PRN DAILY PRN 11/18/20 12:30 11/19/20 21:11 DC Piperacillin Sod/ Tazobactam Sod 2.25 gm/Sodium Chloride 50 ml @ 100 mls/hr Q6HRS 11/18/20 13:00 11/19/20 13:17 DC 11/19/20 06:32 100 MLS/HR Sodium Chloride 1,000 ml @ 400 mls/hr Q2H30M PRN 11/22/20 08:30 11/22/20 20:29 Vancomycin HCl (Vanco Per Pharmacy) 1 each PRN DAILY PRN 11/19/20 13:30 11/21/20 11:10 1 EACH Vancomycin HCl (Vancomycin Random Level) 1 each 1X ONCE 11/24/20 06:00 11/24/20 06:01 Vancomycin HCl 1.25 gm/Sodium Chloride 250 ml @ 166.667 mls/hr 1X ONCE 11/19/20 13:45 11/19/20 15:14 DC 11/19/20 13:30 166.667 MLS/HR Vancomycin HCl 500 mg/Sodium Chloride 100 ml @ 100 mls/hr QMWF 11/22/20 16:00 Labs: Lab Laboratory Tests Test 11/21/20 11:56 11/21/20 16:30 11/21/20 17:05 11/21/20 20:04 Glucose (Fingerstick) 144 mg/dL (70-99) 307 mg/dL (70-99) 214 mg/dL (70-99) Hemoglobin 8.5 g/dL (13.0-17.5) Sodium Level 138 mmol/L (136-145) Potassium Level 4.5 mmol/L (3.5-5.1) Chloride Level 102 mmol/L (98-107) Carbon Dioxide Level 25 mmol/L (21-32) Anion Gap 11 (6-14) Blood Urea Nitrogen 51 mg/dL (8-26) Creatinine 2.6 mg/dL (0.7-1.3) Estimated GFR (Cockcroft-Gault) 30.0 Glucose Level 333 mg/dL (70-99) Calcium Level 8.3 mg/dL (8.5-10.1) Phosphorus Level 4.2 mg/dL (2.6-4.7) Albumin 1.6 g/dL (3.4-5.0) Test 11/22/20 06:45 11/22/20 07:48 White Blood Count 14.2 x10^3/uL (4.0-11.0) Red Blood Count 2.98 x10^6/uL (4.30-5.70) Hemoglobin 8.2 g/dL (13.0-17.5) Hematocrit 26.9 % (39.0-53.0) Mean Corpuscular Volume 90 fL (79-100) Mean Corpuscular Hemoglobin 28 pg (25-35) Mean Corpuscular Hemoglobin Concent 31 g/dL (31-37) Red Cell Distribution Width 16.7 % (11.5-14.5) Platelet Count 355 x10^3/uL (140-400) Neutrophils (%) (Auto) 77 % (31-73) Lymphocytes (%) (Auto) 13 % (24-48) Monocytes (%) (Auto) 6 % (0-9) Eosinophils (%) (Auto) 3 % (0-3) Basophils (%) (Auto) 1 % (0-3) Neutrophils # (Auto) 11.0 x10^3/uL (1.8-7.7) Lymphocytes # (Auto) 1.9 x10^3/uL (1.0-4.8) Monocytes # (Auto) 0.8 x10^3/uL (0.0-1.1) Eosinophils # (Auto) 0.4 x10^3/uL (0.0-0.7) Basophils # (Auto) 0.1 x10^3/uL (0.0-0.2) Sodium Level 139 mmol/L (136-145) Potassium Level 4.9 mmol/L (3.5-5.1) Chloride Level 103 mmol/L (98-107) Carbon Dioxide Level 25 mmol/L (21-32) Anion Gap 11 (6-14) Blood Urea Nitrogen 55 mg/dL (8-26) Creatinine 2.5 mg/dL (0.7-1.3) Estimated GFR (Cockcroft-Gault) 31.4 BUN/Creatinine Ratio 22 (6-20) Glucose Level 91 mg/dL (70-99) Calcium Level 8.2 mg/dL (8.5-10.1) Total Bilirubin 0.3 mg/dL (0.2-1.0) Aspartate Amino Transf (AST/SGOT) 56 U/L (15-37) Alanine Aminotransferase (ALT/SGPT) 53 U/L (16-63) Alkaline Phosphatase 153 U/L (46-116) Total Protein 5.8 g/dL (6.4-8.2) Albumin 1.6 g/dL (3.4-5.0) Albumin/Globulin Ratio 0.4 (1.0-1.7) Glucose (Fingerstick) 102 mg/dL (70-99) Objective: Assessment: Leukocytosis persists likely reactive History of E. coli extended spectrum beta lactamase bacteremia at [facility]. Patient was discharged to [facility] to complete antibiotic treatment through November 25, 2020 Left pleural effusion. Status post thoracocentesis,transudative Hemodialysis catheter dysfunction status post removal with new HDC placement , BC neg Multiple unstageable stage 4 pressure ulcers to sacrum right and left ischium and left trochanter with history of osteomyelitis. Anemia. End-stage renal disease, on hemodialysis. Generalized debility. History of right upper extremity deep venous thrombosis. h/o Pneumothorax, resolved. Diabetes mellitus 2. Severe malnutrition. Diverting colostomy. H/O AKA Plan: Plan of Care Continue Merrem and IV Vanco,renal dosing Monitor cultures Monitor labs Continue local wound care as directed, Continue supportive care. Prognosis poor Discussed with RAMIRO ALMANZAR MD Nov 22, 2020 10:13
[2020-11-22 11:00] VITALS: BP 120/72
--- NOTE | 2020-11-22 11:45 | PDOC ---
DATE OF SERVICE DATE: 11/22/20 TIME: 11:45 SUBJECTIVE ROS seen on HD, no complaints OBJECTIVE Vital Signs Vital Signs Date Time Temp Pulse Resp B/P (MAP) Pulse Ox O2 Delivery O2 Flow Rate FiO2 11/22/20 07:00 97.8 76 16 129/66 (87) 100 Room Air 97.8 11/21/20 08:00 2.0 I & 0 Intake and Output 11/22/20 07:00 Intake Total 500 ml Balance 500 ml Intake Oral 500 ml # Voids 2 PHYSICAL EXAM Physical Exam GENERA no acute distress, HEENT:anicteric. NECK: Supple. LUNGS: Decreased breath sound at the bases, No accessory muscle use. HEART: S1, S2. ABDOMEN: Colostomy in left lower quadrant appears to be functioning, some bloodin it, no distension. Bowel sounds present. 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 NEUROLOGIC: Weak, alert and awake. PSYCHIATRIC: Depressed. DERMATOLOGIC: No generalized rash. DIAGNOSIS/ASSESSMENT Assessment & Plan ESRD- on HD MWF Seen on Dialysis , tolerating well, continue as ordered, Vitaly Hammonds Abnormal x-ray revealing large left-sided effusion, exudate----status post thoracentesis 11/19/2020 Peripheral vascular disease, status post bilateral above-knee amputation. History of VRE. Anemia- On ROBBIE DM II HTN Sacral Decub COMMENT/RELEVANT DATA Meds Current Medications Medications (Trade) Dose Ordered Sig/Patrick Start Time Stop Time Status Last Admin Dose Admin Darbepoetin Anirudh (ARANESP for DIALYSIS PTS) 60 mcg WEEKLYHS 11/19/20 21:00 11/19/20 22:31 60 MCG Dextrose (Dextrose 50%-Water Syringe) 12.5 gm PRN Q15MIN PRN 11/21/20 17:15 Fentanyl Citrate (Fentanyl 2ml Vial) 100 mcg 1X ONCE 11/19/20 14:30 11/19/20 14:38 DC Heparin Sodium (Porcine) (Heparin Sodium) 5,000 unit Q8HRS 11/21/20 14:00 11/22/20 05:34 5,000 UNIT Info (PHARMACY MONITORING -- do not chart) 1 each PRN DAILY PRN 11/22/20 08:30 Insulin Glargine (Lantus Syringe) 4 unit QHS 11/21/20 21:00 11/21/20 21:02 4 UNIT Insulin Human Lispro (HumaLOG) 0-5 UNITS TIDWMEALS 11/21/20 18:00 11/21/20 18:08 5 UNITS Lactobacillus Rhamnosus (Culturelle) 1 cap BID 11/19/20 21:00 11/21/20 19:47 1 CAP Lidocaine HCl (Buffered Lidocaine 1%) 3 ml 1X ONCE 11/19/20 14:30 11/19/20 14:38 DC Lidocaine/ Epinephrine (LIDOCAINE 2%-EPI 1:100,000 multi-dose) 20 ml 1X ONCE 11/19/20 14:30 11/19/20 14:38 DC Meropenem 500 mg/ Sodium Chloride 50 ml @ 100 mls/hr DAILY 11/20/20 09:00 11/21/20 10:00 100 MLS/HR Midazolam HCl (Versed) 2 mg 1X ONCE 11/19/20 14:30 11/19/20 14:38 DC Oxycodone/ Acetaminophen (Percocet 5/325) 1 tab PRN Q4HRS PRN 11/18/20 17:45 11/22/20 03:29 1 TAB Piperacillin Sod/ Tazobactam Sod (Zosyn Per Pharmacy) 1 each PRN DAILY PRN 11/18/20 12:30 11/19/20 21:11 DC Piperacillin Sod/ Tazobactam Sod 2.25 gm/Sodium Chloride 50 ml @ 100 mls/hr Q6HRS 11/18/20 13:00 11/19/20 13:17 DC 11/19/20 06:32 100 MLS/HR Sodium Chloride 1,000 ml @ 400 mls/hr Q2H30M PRN 11/22/20 08:30 11/22/20 20:29 Vancomycin HCl (Vanco Per Pharmacy) 1 each PRN DAILY PRN 11/19/20 13:30 11/21/20 11:10 1 EACH Vancomycin HCl (Vancomycin Random Level) 1 each 1X ONCE 11/24/20 06:00 11/24/20 06:01 Vancomycin HCl 1.25 gm/Sodium Chloride 250 ml @ 166.667 mls/hr 1X ONCE 11/19/20 13:45 11/19/20 15:14 DC 11/19/20 13:30 166.667 MLS/HR Vancomycin HCl 500 mg/Sodium Chloride 100 ml @ 100 mls/hr QMWF 1/18/21 16:00 Lab Laboratory Tests Test 11/21/20 11:56 11/21/20 16:30 11/21/20 17:05 11/21/20 20:04 Glucose (Fingerstick) 144 mg/dL (70-99) 307 mg/dL (70-99) 214 mg/dL (70-99) Hemoglobin 8.5 g/dL (13.0-17.5) Sodium Level 138 mmol/L (136-145) Potassium Level 4.5 mmol/L (3.5-5.1) Chloride Level 102 mmol/L (98-107) Carbon Dioxide Level 25 mmol/L (21-32) Anion Gap 11 (6-14) Blood Urea Nitrogen 51 mg/dL (8-26) Creatinine 2.6 mg/dL (0.7-1.3) Estimated GFR (Cockcroft-Gault) 30.0 Glucose Level 333 mg/dL (70-99) Calcium Level 8.3 mg/dL (8.5-10.1) Phosphorus Level 4.2 mg/dL (2.6-4.7) Albumin 1.6 g/dL (3.4-5.0) Test 11/22/20 06:45 11/22/20 07:48 White Blood Count 14.2 x10^3/uL (4.0-11.0) Red Blood Count 2.98 x10^6/uL (4.30-5.70) Hemoglobin 8.2 g/dL (13.0-17.5) Hematocrit 26.9 % (39.0-53.0) Mean Corpuscular Volume 90 fL (79-100) Mean Corpuscular Hemoglobin 28 pg (25-35) Mean Corpuscular Hemoglobin Concent 31 g/dL (31-37) Red Cell Distribution Width 16.7 % (11.5-14.5) Platelet Count 355 x10^3/uL (140-400) Neutrophils (%) (Auto) 77 % (31-73) Lymphocytes (%) (Auto) 13 % (24-48) Monocytes (%) (Auto) 6 % (0-9) Eosinophils (%) (Auto) 3 % (0-3) Basophils (%) (Auto) 1 % (0-3) Neutrophils # (Auto) 11.0 x10^3/uL (1.8-7.7) Lymphocytes # (Auto) 1.9 x10^3/uL (1.0-4.8) Monocytes # (Auto) 0.8 x10^3/uL (0.0-1.1) Eosinophils # (Auto) 0.4 x10^3/uL (0.0-0.7) Basophils # (Auto) 0.1 x10^3/uL (0.0-0.2) Sodium Level 139 mmol/L (136-145) Potassium Level 4.9 mmol/L (3.5-5.1) Chloride Level 103 mmol/L (98-107) Carbon Dioxide Level 25 mmol/L (21-32) Anion Gap 11 (6-14) Blood Urea Nitrogen 55 mg/dL (8-26) Creatinine 2.5 mg/dL (0.7-1.3) Estimated GFR (Cockcroft-Gault) 31.4 BUN/Creatinine Ratio 22 (6-20) Glucose Level 91 mg/dL (70-99) Calcium Level 8.2 mg/dL (8.5-10.1) Total Bilirubin 0.3 mg/dL (0.2-1.0) Aspartate Amino Transf (AST/SGOT) 56 U/L (15-37) Alanine Aminotransferase (ALT/SGPT) 53 U/L (16-63) Alkaline Phosphatase 153 U/L (46-116) Total Protein 5.8 g/dL (6.4-8.2) Albumin 1.6 g/dL (3.4-5.0) Albumin/Globulin Ratio 0.4 (1.0-1.7) Glucose (Fingerstick) 102 mg/dL (70-99) Results All relevant outside records, renal labs, imaging studies, telemetry/EKG's were reviewed. Justicifation of Admission Dx: Justifications for Admission: Justification of Admission Dx: Yes Aspiration Pneumonia: Hemodynamic Instability Acute Renal Failure: RF Can't Be Managed Outpt Chronic Renal Failure: Metabolic Abnormality SUSSY DE LA ROSA MD Nov 22, 2020 11:45
--- NOTE | 2020-11-22 12:23 | PDOC ---
PULMONARY PROGRESS NOTES DATE: 11/22/20 TIME: 12:21 Subjective Patient is seen while on hemodialysis, remains on room air denies any shortness of breath or increased cough s/p thoracentesis 11/19, 1350 evacuated. Vitals Vital Signs Date Time Temp Pulse Resp B/P (MAP) Pulse Ox O2 Delivery O2 Flow Rate FiO2 11/22/20 07:00 97.8 76 16 129/66 (87) 100 Room Air 97.8 11/21/20 08:00 2.0 ROS: No Nausea, No Chest Pain, No Abdominal Pain, No Increase Cough General: Alert Lungs: Clear, Crackles Cardiovascular: S1, S2 Abdomen: Soft, Non-tender Neuro Exam: Alert Extremities: No Edema Skin: Warm Labs Laboratory Tests Test 11/20/20 16:28 11/21/20 08:49 11/21/20 11:56 11/21/20 16:30 Glucose (Fingerstick) 145 mg/dL (70-99) 179 mg/dL (70-99) 144 mg/dL (70-99) Hemoglobin 8.5 g/dL (13.0-17.5) Sodium Level 138 mmol/L (136-145) Potassium Level 4.5 mmol/L (3.5-5.1) Chloride Level 102 mmol/L (98-107) Carbon Dioxide Level 25 mmol/L (21-32) Anion Gap 11 (6-14) Blood Urea Nitrogen 51 mg/dL (8-26) Creatinine 2.6 mg/dL (0.7-1.3) Estimated GFR (Cockcroft-Gault) 30.0 Glucose Level 333 mg/dL (70-99) Calcium Level 8.3 mg/dL (8.5-10.1) Phosphorus Level 4.2 mg/dL (2.6-4.7) Albumin 1.6 g/dL (3.4-5.0) Test 11/21/20 17:05 11/21/20 20:04 11/22/20 06:45 11/22/20 07:48 Glucose (Fingerstick) 307 mg/dL (70-99) 214 mg/dL (70-99) 102 mg/dL (70-99) White Blood Count 14.2 x10^3/uL (4.0-11.0) Red Blood Count 2.98 x10^6/uL (4.30-5.70) Hemoglobin 8.2 g/dL (13.0-17.5) Hematocrit 26.9 % (39.0-53.0) Mean Corpuscular Volume 90 fL (79-100) Mean Corpuscular Hemoglobin 28 pg (25-35) Mean Corpuscular Hemoglobin Concent 31 g/dL (31-37) Red Cell Distribution Width 16.7 % (11.5-14.5) Platelet Count 355 x10^3/uL (140-400) Neutrophils (%) (Auto) 77 % (31-73) Lymphocytes (%) (Auto) 13 % (24-48) Monocytes (%) (Auto) 6 % (0-9) Eosinophils (%) (Auto) 3 % (0-3) Basophils (%) (Auto) 1 % (0-3) Neutrophils # (Auto) 11.0 x10^3/uL (1.8-7.7) Lymphocytes # (Auto) 1.9 x10^3/uL (1.0-4.8) Monocytes # (Auto) 0.8 x10^3/uL (0.0-1.1) Eosinophils # (Auto) 0.4 x10^3/uL (0.0-0.7) Basophils # (Auto) 0.1 x10^3/uL (0.0-0.2) Sodium Level 139 mmol/L (136-145) Potassium Level 4.9 mmol/L (3.5-5.1) Chloride Level 103 mmol/L (98-107) Carbon Dioxide Level 25 mmol/L (21-32) Anion Gap 11 (6-14) Blood Urea Nitrogen 55 mg/dL (8-26) Creatinine 2.5 mg/dL (0.7-1.3) Estimated GFR (Cockcroft-Gault) 31.4 BUN/Creatinine Ratio 22 (6-20) Glucose Level 91 mg/dL (70-99) Calcium Level 8.2 mg/dL (8.5-10.1) Total Bilirubin 0.3 mg/dL (0.2-1.0) Aspartate Amino Transf (AST/SGOT) 56 U/L (15-37) Alanine Aminotransferase (ALT/SGPT) 53 U/L (16-63) Alkaline Phosphatase 153 U/L (46-116) Total Protein 5.8 g/dL (6.4-8.2) Albumin 1.6 g/dL (3.4-5.0) Albumin/Globulin Ratio 0.4 (1.0-1.7) Laboratory Tests Test 11/21/20 16:30 11/21/20 17:05 11/21/20 20:04 11/22/20 06:45 Hemoglobin 8.5 g/dL (13.0-17.5) 8.2 g/dL (13.0-17.5) Sodium Level 138 mmol/L (136-145) 139 mmol/L (136-145) Potassium Level 4.5 mmol/L (3.5-5.1) 4.9 mmol/L (3.5-5.1) Chloride Level 102 mmol/L (98-107) 103 mmol/L (98-107) Carbon Dioxide Level 25 mmol/L (21-32) 25 mmol/L (21-32) Anion Gap 11 (6-14) 11 (6-14) Blood Urea Nitrogen 51 mg/dL (8-26) 55 mg/dL (8-26) Creatinine 2.6 mg/dL (0.7-1.3) 2.5 mg/dL (0.7-1.3) Estimated GFR (Cockcroft-Gault) 30.0 31.4 Glucose Level 333 mg/dL (70-99) 91 mg/dL (70-99) Calcium Level 8.3 mg/dL (8.5-10.1) 8.2 mg/dL (8.5-10.1) Phosphorus Level 4.2 mg/dL (2.6-4.7) Albumin 1.6 g/dL (3.4-5.0) 1.6 g/dL (3.4-5.0) Glucose (Fingerstick) 307 mg/dL (70-99) 214 mg/dL (70-99) White Blood Count 14.2 x10^3/uL (4.0-11.0) Red Blood Count 2.98 x10^6/uL (4.30-5.70) Hematocrit 26.9 % (39.0-53.0) Mean Corpuscular Volume 90 fL (79-100) Mean Corpuscular Hemoglobin 28 pg (25-35) Mean Corpuscular Hemoglobin Concent 31 g/dL (31-37) Red Cell Distribution Width 16.7 % (11.5-14.5) Platelet Count 355 x10^3/uL (140-400) Neutrophils (%) (Auto) 77 % (31-73) Lymphocytes (%) (Auto) 13 % (24-48) Monocytes (%) (Auto) 6 % (0-9) Eosinophils (%) (Auto) 3 % (0-3) Basophils (%) (Auto) 1 % (0-3) Neutrophils # (Auto) 11.0 x10^3/uL (1.8-7.7) Lymphocytes # (Auto) 1.9 x10^3/uL (1.0-4.8) Monocytes # (Auto) 0.8 x10^3/uL (0.0-1.1) Eosinophils # (Auto) 0.4 x10^3/uL (0.0-0.7) Basophils # (Auto) 0.1 x10^3/uL (0.0-0.2) BUN/Creatinine Ratio 22 (6-20) Total Bilirubin 0.3 mg/dL (0.2-1.0) Aspartate Amino Transf (AST/SGOT) 56 U/L (15-37) Alanine Aminotransferase (ALT/SGPT) 53 U/L (16-63) Alkaline Phosphatase 153 U/L (46-116) Total Protein 5.8 g/dL (6.4-8.2) Albumin/Globulin Ratio 0.4 (1.0-1.7) Test 11/22/20 07:48 Glucose (Fingerstick) 102 mg/dL (70-99) Medications Active Scripts Medications Dose Route/Sig Max Daily Dose Days Date Category Dose Instructions Percocet 5-325 Mg Tablet (Oxycodone/Acetaminophen) 1 Each Tablet 1 Tab PO Q4HRS PRN MDD 4 Tablet(s) 30 11/19/20 Reported Acetaminophen 325 Mg Tablet 650 Mg PO PRN Q6HRS PRN 11/19/20 Reported Dakin's (Sodium Hypochlorite) 473 Ml Solution 473 Ml MC BID 11/19/20 Reported Silvadene (Silver Sulfadiazine) 20 Gm Cream..g. 1 Ela TP DAILY 7 11/19/20 Reported apply to affected area(s) Zoloft (Sertraline Hcl) 50 Mg Tablet 1 Tab PO DAILY 11/19/20 Reported Pantoprazole Sodium (Pantoprazole Sodium) 40 Mg Tablet.dr 40 Mg PO DAILYAC 11/19/20 Reported Midodrine Hcl 10 Mg Tablet 10 Mg PO TID 11/19/20 Reported Melatonin 5 Mg Tab.ir.er 1 Tab PO QHS 30 11/19/20 Reported [megase 400 daily] DAILY 11/19/20 Reported Levemir (Insulin Detemir) 100 Unit/1 Ml Vial 4 Unit SQ HS 11/19/20 Reported FENTANYL 12mcg/hr (Fentanyl) 1 Each Patch.td72 1 Patch TP Q3DAYS 11/19/20 Reported Procrit (Epoetin Anirudh) 20,000 Unit/1 Ml Vial 4,000 Unit IJ MWF 11/19/20 Reported Colace (Docusate Sodium) 100 Mg Capsule 1 Cap PO BID 30 11/19/20 Reported Claritin (Loratadine) 10 Mg Capsule 1 Cap PO DAILY 30 11/19/20 Reported Carbidopa-Levodopa 25-100 Tab (Carbidopa/Levodopa) 1 Each Tablet 1 Each PO DAILY 11/19/20 Reported Atorvastatin Calcium 40 Mg Tablet 1 Tab PO QHS 11/19/20 Reported Tom Packet (Argin/Glut/Cahmb/Collag/Mv-Min) 1 Each Powd.pack 1 Each PO BID 11/19/20 Reported [ferric] 125 Mg IV 11/19/20 Reported Vancomycin 750 mg/150 ml Bag (Vancomycin/Water For Inj (Peg)) 750 Mg/150 Ml Piggyback 500 Mg IV QMWF 11/19/20 Reported Impression . IMPRESSION: 1. Abnormal x-ray revealing large left-sided effusion, exudate----status post thoracentesis 11/19/2020 2. End-stage renal disease, on hemodialysis. Nonfunctional hemodialysis catheter. 3. Peripheral vascular disease, status post bilateral above-knee amputation. 4. History of VRE. 5. Constipation. 6. Hypertension. 7. Tobacco dependence, in remission. 8. Sacral decubiti ulcers. 9. Leukocytosis. History of E. coli extended spectrum beta lactamase bacteremia at [facility]. Patient was discharged to [facility] to complete antibiotic treatment through November 25, 2020 Plan . PLAN: Patient is stable from a pulmonary standpoint remains on room air Status post thoracentesis 11/19/2020 with 1350 evacuated from the left side exudative, pleural fluid negative for organisms Follow infectious disease recommendations in regards to antibiotics, pleural fluid negative, blood cultures negative, remains on meropenem and vancomycin Physical therapy/Occupational Therapy DVT/GI prophylaxis Discussed with RN Patient can discharge back to [facility] from our standpoint HUNTER HIGGINS MD Nov 22, 2020 12:23
[2020-11-22] MEDS: LACTOBACILLUS RHAMNOSUS GG 1 CAPSULE. PO SCH (12:48)
[2020-11-22] MEDS: MEROPENEM 500 MG in IV NORMAL SALINE 50ML 50 ML IV SCH (12:49)
--- NOTE | 2020-11-22 14:15 | NUR ---
RIO following for discharge planning. Spoke with RN and reviewed chart. Pt remains on room air, IV Zosyn and IV Meropenem. RIO spoke with Sarita from [facility]. Insurance authorization remains pending. RIO following. Addendum: 11/22/20 at 1420 by LISA PATE SW requested PT/OT orders for evaluation. Addendum: 11/22/20 at 1424 by LISA PATE LVM for to see about alternative discharge plans if insurance denies request for readmission to [facility]
[2020-11-22 15:00] VITALS: BP 123/67
[2020-11-22] MEDS ORDERED: VANCOMYCIN 500 MG in IV NORMAL SALINE 100ML 100 ML IV SCH (16:00)
--- NOTE | 2020-11-22 16:21 | NUR ---
Discharge Note: [facility] Insurance approved. Pt to discharge today per Dr. Jackson. RIO obtained scripts for IV Vancomycin and IV Meropenem from Dr. Acharya (copies on chart). RIO contacted [facility] and arranged for stretcher transportation at 1730 with IV maintenance. PCS form faxed (copy on chart). Spoke with who is agreeable to discharge and stated appreciation for care of pt from [facility] staff. RN to call report. Clinicals ready to be sent with pt. Discharge orders with scripts to be faxed to [phone]. [facility] [address] Addendum: 11/22/20 at 1727 by LISA PATE Discharge orders with scripts faxed and placed in copy for transport. No further RIO needs at this time.
--- NOTE | 2020-11-22 16:56 | PDOC ---
[employer] PROGRESS NOTE Date of Service DOS: DATE: 11/22/20 TIME: 16:51 Chief Complaint Chief Complaint IMPRESSION Left pleural effusion status post thoracentesis on 11/19/2020 with 1.3 L fluid removed Malfunctioning dialysis catheter exchanged 11/20/2020 Reactive leukocytosis Chronic anemia due to ESRD Severe protein malnutrition PLAN Continue medicine management Continue with HD with nephrology Continue with empiric IV antibiotics per ID Pending blood and urine cultures Heparin for DVT prophylaxis ADA diet Full code Discussed with RN and SW Disposition inpatient management as above, anticipate discharge in the next 24 to 48 hours Surrogate decision maker is Luli Menendez s/p thoracentesis 11/19, 1350 evacuated. History of Present Illness History of Present Illness 11/22/2020 Patient seen and evaluated. No acute events overnight. Afebrile. Chart, labs, and imaging reviewed, discussed with RN. Patient is continue IV antibiotics at [facility]. Greater than 30 minutes was spent managing the discharge of this patient. 11/20/2020 No acute events overnight. Patient is saturating well on room air. Without any dyspnea. HD catheter was revised and exchanged and thoracentesis completed with 1.3 L fluid removed. So far pleural fluid status appears to be transudate of. Patient's chart, labs, images were reviewed and discussed with RN 11/19/2020 No acute events overnight. Patient remains afebrile. Pending thoracentesis today and revision of this dialysis catheter. Patient's chart, labs, images were reviewed and discussed with RN The patient is a pleasant elderly male who has had a complex recent past history. Basically on 10/19/2020, he was admitted to [facility] for management of wounds and sepsis. He had been recently admitted to [facility] on 10/08/2020 where he was treated for osteomyelitis. He is a dialysis patient. He has had a recent upper extremity DVT for which he has been on Coumadin. I have initially noted he does have bilateral [id number] amputations. He also has a colostomy on the left. He states he has some chronic cancer but is not sure what it is. He was recently transfused because of her hemoglobin is low at 6.2. He had recent colonoscopies and endoscopies, which were negative. On 09/23/2020, he had a dialysis catheter removed and replaced on 10/08/2020. Apparently, he developed a large right pneumothorax after that procedure and a chest tube had to be placed. The tube was there for about 4 days from 10/11/2020 to 10/15/2020. He seems to have chronic elevation of his troponins and that is likely secondary to his chronic renal insufficiency. He has multiple wounds. He has been sent here today to our Emergency Room by Dr. Weems of the pulmonary service at [facility] because the patient has a pleural effusion and his dialysis catheter was malfunctioning Vitals/I&O Vitals/I&O: Vital Signs Date Time Temp Pulse Resp B/P (MAP) Pulse Ox O2 Delivery O2 Flow Rate FiO2 11/22/20 15:00 98.5 100 18 123/67 (85) 98 Room Air 98.5 11/21/20 08:00 2.0 I & O 11/21/20 11/21/20 11/22/20 15:00 23:00 07:00 Intake Total 200 ml 300 ml Balance 200 ml 300 ml Physical Exam Physical Exam: GENERAL: Alert, awake male lying in bed comfortably, in no acute distress, HEENT: Normocephalic, atraumatic, anicteric. No thrush. NECK: Supple. CHESTWALL RT HDC clean LUNGS: Decreased breath sound at the bases, No wheezing. No accessory muscle use. HEART: S1, S2. ABDOMEN: Colostomy in left lower quadrant appears to be functioning, some blood in it, no distension. Bowel sounds present. 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 NEUROLOGIC: Weak, alert and awake. PSYCHIATRIC: Depressed. DERMATOLOGIC: No generalized rash. Wound pics noted General: Alert, Cooperative Heart: Regular rate Lungs: Clear, Crackles Abdomen: Normal bowel sounds Extremities: No clubbing Skin: No breakdown Labs Labs: Laboratory Tests Test 11/21/20 17:05 11/21/20 20:04 11/22/20 06:45 11/22/20 07:48 Glucose (Fingerstick) 307 mg/dL (70-99) 214 mg/dL (70-99) 102 mg/dL (70-99) White Blood Count 14.2 x10^3/uL (4.0-11.0) Red Blood Count 2.98 x10^6/uL (4.30-5.70) Hemoglobin 8.2 g/dL (13.0-17.5) Hematocrit 26.9 % (39.0-53.0) Mean Corpuscular Volume 90 fL (79-100) Mean Corpuscular Hemoglobin 28 pg (25-35) Mean Corpuscular Hemoglobin Concent 31 g/dL (31-37) Red Cell Distribution Width 16.7 % (11.5-14.5) Platelet Count 355 x10^3/uL (140-400) Neutrophils (%) (Auto) 77 % (31-73) Lymphocytes (%) (Auto) 13 % (24-48) Monocytes (%) (Auto) 6 % (0-9) Eosinophils (%) (Auto) 3 % (0-3) Basophils (%) (Auto) 1 % (0-3) Neutrophils # (Auto) 11.0 x10^3/uL (1.8-7.7) Lymphocytes # (Auto) 1.9 x10^3/uL (1.0-4.8) Monocytes # (Auto) 0.8 x10^3/uL (0.0-1.1) Eosinophils # (Auto) 0.4 x10^3/uL (0.0-0.7) Basophils # (Auto) 0.1 x10^3/uL (0.0-0.2) Sodium Level 139 mmol/L (136-145) Potassium Level 4.9 mmol/L (3.5-5.1) Chloride Level 103 mmol/L (98-107) Carbon Dioxide Level 25 mmol/L (21-32) Anion Gap 11 (6-14) Blood Urea Nitrogen 55 mg/dL (8-26) Creatinine 2.5 mg/dL (0.7-1.3) Estimated GFR (Cockcroft-Gault) 31.4 BUN/Creatinine Ratio 22 (6-20) Glucose Level 91 mg/dL (70-99) Calcium Level 8.2 mg/dL (8.5-10.1) Total Bilirubin 0.3 mg/dL (0.2-1.0) Aspartate Amino Transf (AST/SGOT) 56 U/L (15-37) Alanine Aminotransferase (ALT/SGPT) 53 U/L (16-63) Alkaline Phosphatase 153 U/L (46-116) Total Protein 5.8 g/dL (6.4-8.2) Albumin 1.6 g/dL (3.4-5.0) Albumin/Globulin Ratio 0.4 (1.0-1.7) Assessment and Plan Assessmemt and Plan Problems Medical Problems: (1) Dialysis catheter clot or failure Status: Acute (2) ESRD (end stage renal disease) on dialysis Status: Acute (3) Pleural effusion on left Status: Acute Comment Review of Relevant I have reviewed the following items ruby (where applicable) has been applied. Medications: Current Medications Medications (Trade) Dose Ordered Sig/Patrick Route PRN Reason Start Time Stop Time Status Last Admin Dose Admin Vancomycin HCl 500 mg/Sodium Chloride 100 ml @ 100 mls/hr QMWF IV 11/22/20 16:00 11/22/20 16:43 Insulin Glargine (Lantus Syringe) 4 unit QHS SQ 11/21/20 21:00 11/21/20 21:02 Insulin Human Lispro (HumaLOG) 0-5 UNITS TIDWMEALS SQ 11/21/20 18:00 11/21/20 18:08 Justifications for Admission Other Justification DEMETRIUS MCKEE MD Nov 22, 2020 16:56
--- NOTE | 2020-11-22 17:00 | NUR ---
PHONE CONTACT MADE WITH PATIENTS' , QUESTIONS AND CONCERNS ANSWERED, INFORMED HER THAT THE PATIENT WOULD BE TRANSFERRED BACK TO [facility] AT 1730. REPORT CALLED TO PAPITO AT [facility], QUESTIONS AND CONCERNS ANSWERED.
--- NOTE | 2020-11-22 17:03 | PDOC3 ---
Discharge Summary Visit Information Date of Admission: Nov 18, 2020 Date of Discharge: Nov 22, 2020 Final Diagnosis Problems Medical Problems: (1) Dialysis catheter clot or failure Status: Acute (2) ESRD (end stage renal disease) on dialysis Status: Acute (3) Pleural effusion on left Status: Acute Brief Hospital Course Allergies Allergies Coded Allergies Type Severity Reaction Last Updated Verified morphine Allergy Intermediate HALLUCINATE 11/18/20 Yes Vital Signs Vital Signs Date Time Temp Pulse Resp B/P (MAP) Pulse Ox O2 Delivery O2 Flow Rate FiO2 11/22/20 15:00 98.5 100 18 123/67 (85) 98 Room Air 98.5 11/21/20 08:00 2.0 Lab Results Laboratory Tests Test 11/21/20 08:49 11/21/20 11:56 11/21/20 16:30 11/21/20 17:05 Glucose (Fingerstick) 179 mg/dL (70-99) 144 mg/dL (70-99) 307 mg/dL (70-99) Hemoglobin 8.5 g/dL (13.0-17.5) Sodium Level 138 mmol/L (136-145) Potassium Level 4.5 mmol/L (3.5-5.1) Chloride Level 102 mmol/L (98-107) Carbon Dioxide Level 25 mmol/L (21-32) Anion Gap 11 (6-14) Blood Urea Nitrogen 51 mg/dL (8-26) Creatinine 2.6 mg/dL (0.7-1.3) Estimated GFR (Cockcroft-Gault) 30.0 Glucose Level 333 mg/dL (70-99) Calcium Level 8.3 mg/dL (8.5-10.1) Phosphorus Level 4.2 mg/dL (2.6-4.7) Albumin 1.6 g/dL (3.4-5.0) Test 11/21/20 20:04 11/22/20 06:45 11/22/20 07:48 11/22/20 16:53 Glucose (Fingerstick) 214 mg/dL (70-99) 102 mg/dL (70-99) 265 mg/dL (70-99) White Blood Count 14.2 x10^3/uL (4.0-11.0) Red Blood Count 2.98 x10^6/uL (4.30-5.70) Hemoglobin 8.2 g/dL (13.0-17.5) Hematocrit 26.9 % (39.0-53.0) Mean Corpuscular Volume 90 fL (79-100) Mean Corpuscular Hemoglobin 28 pg (25-35) Mean Corpuscular Hemoglobin Concent 31 g/dL (31-37) Red Cell Distribution Width 16.7 % (11.5-14.5) Platelet Count 355 x10^3/uL (140-400) Neutrophils (%) (Auto) 77 % (31-73) Lymphocytes (%) (Auto) 13 % (24-48) Monocytes (%) (Auto) 6 % (0-9) Eosinophils (%) (Auto) 3 % (0-3) Basophils (%) (Auto) 1 % (0-3) Neutrophils # (Auto) 11.0 x10^3/uL (1.8-7.7) Lymphocytes # (Auto) 1.9 x10^3/uL (1.0-4.8) Monocytes # (Auto) 0.8 x10^3/uL (0.0-1.1) Eosinophils # (Auto) 0.4 x10^3/uL (0.0-0.7) Basophils # (Auto) 0.1 x10^3/uL (0.0-0.2) Sodium Level 139 mmol/L (136-145) Potassium Level 4.9 mmol/L (3.5-5.1) Chloride Level 103 mmol/L (98-107) Carbon Dioxide Level 25 mmol/L (21-32) Anion Gap 11 (6-14) Blood Urea Nitrogen 55 mg/dL (8-26) Creatinine 2.5 mg/dL (0.7-1.3) Estimated GFR (Cockcroft-Gault) 31.4 BUN/Creatinine Ratio 22 (6-20) Glucose Level 91 mg/dL (70-99) Calcium Level 8.2 mg/dL (8.5-10.1) Total Bilirubin 0.3 mg/dL (0.2-1.0) Aspartate Amino Transf (AST/SGOT) 56 U/L (15-37) Alanine Aminotransferase (ALT/SGPT) 53 U/L (16-63) Alkaline Phosphatase 153 U/L (46-116) Total Protein 5.8 g/dL (6.4-8.2) Albumin 1.6 g/dL (3.4-5.0) Albumin/Globulin Ratio 0.4 (1.0-1.7) Laboratory Tests Test 11/21/20 17:05 11/21/20 20:04 11/22/20 06:45 11/22/20 07:48 Glucose (Fingerstick) 307 mg/dL (70-99) 214 mg/dL (70-99) 102 mg/dL (70-99) White Blood Count 14.2 x10^3/uL (4.0-11.0) Red Blood Count 2.98 x10^6/uL (4.30-5.70) Hemoglobin 8.2 g/dL (13.0-17.5) Hematocrit 26.9 % (39.0-53.0) Mean Corpuscular Volume 90 fL (79-100) Mean Corpuscular Hemoglobin 28 pg (25-35) Mean Corpuscular Hemoglobin Concent 31 g/dL (31-37) Red Cell Distribution Width 16.7 % (11.5-14.5) Platelet Count 355 x10^3/uL (140-400) Neutrophils (%) (Auto) 77 % (31-73) Lymphocytes (%) (Auto) 13 % (24-48) Monocytes (%) (Auto) 6 % (0-9) Eosinophils (%) (Auto) 3 % (0-3) Basophils (%) (Auto) 1 % (0-3) Neutrophils # (Auto) 11.0 x10^3/uL (1.8-7.7) Lymphocytes # (Auto) 1.9 x10^3/uL (1.0-4.8) Monocytes # (Auto) 0.8 x10^3/uL (0.0-1.1) Eosinophils # (Auto) 0.4 x10^3/uL (0.0-0.7) Basophils # (Auto) 0.1 x10^3/uL (0.0-0.2) Sodium Level 139 mmol/L (136-145) Potassium Level 4.9 mmol/L (3.5-5.1) Chloride Level 103 mmol/L (98-107) Carbon Dioxide Level 25 mmol/L (21-32) Anion Gap 11 (6-14) Blood Urea Nitrogen 55 mg/dL (8-26) Creatinine 2.5 mg/dL (0.7-1.3) Estimated GFR (Cockcroft-Gault) 31.4 BUN/Creatinine Ratio 22 (6-20) Glucose Level 91 mg/dL (70-99) Calcium Level 8.2 mg/dL (8.5-10.1) Total Bilirubin 0.3 mg/dL (0.2-1.0) Aspartate Amino Transf (AST/SGOT) 56 U/L (15-37) Alanine Aminotransferase (ALT/SGPT) 53 U/L (16-63) Alkaline Phosphatase 153 U/L (46-116) Total Protein 5.8 g/dL (6.4-8.2) Albumin 1.6 g/dL (3.4-5.0) Albumin/Globulin Ratio 0.4 (1.0-1.7) Test 11/22/20 16:53 Glucose (Fingerstick) 265 mg/dL (70-99) Brief Hospital Course Mr. Menendez is a 65 old male who presented with left-sided pleural effusion. Consultation was placed to pulmonology and ID. He received a thoracentesis with roughly 1.3 L evacuated, and studies consistent with exudative effusion. Consultation was placed to nephrology. He had his hemodialysis catheter replaced and continued HD, per nephrology. He was treated with IV meropenem and vancomycin, and was discharged to LTAC to continue IV antibiotics. Discharge Information Condition at Discharge: Improved Follow Up: Weeks Disposition/Orders: D/C to Another Facility Scheduled Argin/Glut/Cahmb/Collag/Mv-Min (Tom Packet) 1 Each Powd.pack, 1 EACH PO BID for wound healing, (Reported) Entered as Reported by: CEDRICK MATTHEWS on 11/19/202020 Last Action: Reviewed on 11/19/20 0002 by CEDRICK MATTHEWS Atorvastatin Calcium (Atorvastatin Calcium) 40 Mg Tablet, 1 TAB PO QHS for cholesterol, #90 Ref 3 (Reported) Entered as Reported by: CEDRICK MATTHEWS on 11/19/202020 Last Action: Reviewed on 11/19/201 by CEDRICK MATTHEWS Carbidopa/Levodopa (Carbidopa-Levodopa 25-100 Tab) 1 Each Tablet, 1 EACH PO DAILY for seizures, (Reported) Entered as Reported by: CEDRICK MATTHEWS on 11/19/202020 Last Action: Reviewed on 11/19/201 by CEDRICK MATTHEWS Docusate Sodium (Colace) 100 Mg Capsule, 1 CAP PO BID for stool softener for 30 Days, #60 Ref 0 (Reported) Entered as Reported by: CEDRICK MATTHEWS on 11/19/202020 Last Action: Reviewed on 11/19/201 by CEDRICK MATTHEWS Epoetin Anirudh (Procrit) 20,000 Unit/1 Ml Vial, 4,000 UNIT IJ mwf for supplement, (Reported) Entered as Reported by: CEDRICK MATTHEWS on 11/19/202020 Last Action: Reviewed on 11/19/201 by CEDRICK MATTHEWS Fentanyl (FENTANYL 12mcg/hr) 1 Each Patch.td72, 1 PATCH TP Q3DAYS for pain, #10 (Reported) Entered as Reported by: CEDRICK MATTHEWS on 11/19/202020 Last Action: Reviewed on 11/19/201 by CEDRICK MATTHEWS Insulin Detemir (Levemir) 100 Unit/1 Ml Vial, 4 UNIT SQ HS for blood glucose, (Reported) Entered as Reported by: CEDRICK MATTHEWS on 11/19/202020 Last Action: Converted on 11/21/201714 by CLEVE MENA Loratadine (Claritin) 10 Mg Capsule, 1 CAP PO DAILY for allergy symptoms for 30 Days, #30 Ref 0 (Reported) Entered as Reported by: CEDRICK MATTHEWS on 11/19/202020 Last Action: Reviewed on 11/19/201 by CEDRICK MATTHEWS Melatonin (Melatonin) 5 Mg Tab.ir.er, 1 TAB PO QHS for sleep for 30 Days, #30 Ref 0 (Reported) Entered as Reported by: CEDRICK MATTHEWS on 11/19/202020 Last Action: Reviewed on 11/19/201 by CEDRICK MATTHEWS Midodrine Hcl (Midodrine Hcl) 10 Mg Tablet, 10 MG PO TID for heart rhythm, (Reported) Entered as Reported by: CEDRICK MATTHEWS on 11/19/202020 Last Action: Reviewed on 11/19/201 by CEDRICK MATTHEWS Pantoprazole Sodium (Pantoprazole Sodium ) 40 Mg Tablet.dr, 40 MG PO DAILYAC for GERD, (Reported) Entered as Reported by: CEDRICK MATTHEWS on 11/19/202020 Last Action: Reviewed on 11/19/201 by CEDRICK MATTHEWS Sertraline Hcl (Zoloft) 50 Mg Tablet, 1 TAB PO DAILY for depression, #30 Ref 2 (Reported) Entered as Reported by: CEDRICK MATTHEWS on 11/19/202020 Last Action: Reviewed on 11/19/201 by CEDRICK MATHTEWS Silver Sulfadiazine (Silvadene) 20 Gm Cream..g., 1 KRISSY TP DAILY for left and right ischial areas for 7 Days, #50 Ref 0 (Reported) apply to affected area(s) Entered as Reported by: CEDRICK MATTHEWS on 11/19/202020 Last Action: Reviewed on 11/19/201 by CEDRICK MATTHEWS Sodium Hypochlorite (Dakin's) 473 Ml Solution, 473 ML MC BID for left and right ischial areas, (Reported) Entered as Reported by: CEDRICK MATTHEWS on 11/19/202020 Last Action: Reviewed on 11/19/201 by CEDRICK MATTHEWS Vancomycin/Water For Inj (Peg) (Vancomycin 750 mg/150 ml Bag) 750 Mg/150 Ml Piggyback, 500 MG IV QMWF for WITH HEMODIALYSIS, (Reported) Entered as Reported by: CEDRICK MATTHEWS on 11/19/202020 Last Action: Reviewed on 11/19/201 by CEDRICK MATTHEWS [megase 400 daily] , DAILY, (Reported) Entered as Reported by: CEDRICK MATTHEWS on 11/19/202020 Last Action: Reviewed on 11/19/201 by CEDRICK MATTHEWS Scheduled PRN Acetaminophen (Acetaminophen) 325 Mg Tablet, 650 MG PO PRN Q6HRS PRN for PAIN, (Reported) Entered as Reported by: CEDRICK MATTHEWS on 11/19/202020 Last Action: Reviewed on 11/19/201 by CEDRICK MATTHEWS Oxycodone/Apap 5-325 (Percocet 5-325 Mg Tablet ) 1 Each Tablet, 1 TAB PO Q4HRS PRN for SEVERE PAIN 7-10 MDD 4 Tablet(s) for 30 Days, #120 Ref 0 (Reported) Entered as Reported by: CEDRICK MATTHEWS on 11/19/202020 Last Action: Reviewed on 11/19/201 by CEDRICK MATTHEWS Miscellaneous Medications [ferric] , 125 MG IV, (Reported) Entered as Reported by: CEDRICK MATTHEWS on 11/19/202020 Last Action: Reviewed on 11/19/201 by CEDRICK MATTHEWS Justicifation of Admission Dx: Justifications for Admission: Justification of Admission Dx: Yes Aspiration Pneumonia: Hemodynamic Instability Acute Renal Failure: RF Can't Be Managed Outpt Chronic Renal Failure: Metabolic Abnormality DEMETRIUS MCKEE MD Nov 22, 2020 17:03
--- NOTE | 2020-11-22 17:07 | SNU/HH DC ---
DISCHARGE ORDERS DISCHARGE INFORMATION: DISCHARGE DATE: Nov 22, 2020 FINAL DIAGNOSIS Problems Medical Problems: (1) Dialysis catheter clot or failure Status: Acute (2) ESRD (end stage renal disease) on dialysis Status: Acute (3) Pleural effusion on left Status: Acute CONDITION ON DISCHARGE: Stable CODE STATUS: Code Status: Full LTAC: ADMIT TO LTAC: Yes POST DISCHARGE ORDERS: ACTIVITY ORDERS: Activity as tolerated WEIGHT BEARING STATUS: As tolerated DIET AFTER DISCHARGE: Renal CHECKS AFTER DISCHARGE: COMMENTS: Ij/chest TREATMENT/EQUIPMENT ORDERS: Physical Therapy For: Evalulation/Treatment DISCHARGE MEDICATIONS: Home Meds Reported Medications Oxycodone/Apap 5-325 (PERCOCET 5-325 MG TABLET ) 1 Each Tablet, 1 TAB PO Q4HRS PRN for SEVERE PAIN 7-10 MDD 4 Tablet(s) for 30 Days, #120 TAB 0 Refills 11/19/20 Acetaminophen (ACETAMINOPHEN) 325 Mg Tablet, 650 MG PO PRN Q6HRS PRN for PAIN, T AB 11/19/20 Sodium Hypochlorite (DAKIN'S) 473 Ml Solution, 473 ML MC BID for left and right ischial areas, MISC 11/19/20 Silver Sulfadiazine (SILVADENE) 20 Gm Cream..g., 1 KRISSY TP DAILY for left and right ischial areas for 7 Days, #50 GM 0 Refills apply to affected area(s) 11/19/20 Sertraline Hcl (ZOLOFT) 50 Mg Tablet, 1 TAB PO DAILY for depression, #30 TAB 2 Refills 11/19/20 Pantoprazole Sodium (PANTOPRAZOLE SODIUM ) 40 Mg Tablet.dr, 40 MG PO DAILYAC for GERD, TAB 11/19/20 Midodrine Hcl (MIDODRINE HCL) 10 Mg Tablet, 10 MG PO TID for heart rhythm, TAB 11/19/20 Melatonin (Melatonin) 5 Mg Tab.ir.er, 1 TAB PO QHS for sleep for 30 Days, #30 TAB 0 Refills 11/19/20 [megase 400 daily] No Conflict Check, DAILY 11/19/20 Insulin Detemir (LEVEMIR) 100 Unit/1 Ml Vial, 4 UNIT SQ HS for blood glucose, VIAL 11/19/20 Fentanyl (FENTANYL 12mcg/hr) 1 Each Patch.td72, 1 PATCH TP Q3DAYS for pain, #10 PATCH 11/19/20 Epoetin Anirudh (PROCRIT) 20,000 Unit/1 Ml Vial, 4000 UNIT IJ mwf for supplement, EACH 11/19/20 Docusate Sodium (COLACE) 100 Mg Capsule, 1 CAP PO BID for stool softener for 30 Days, #60 CAP 0 Refills 11/19/20 Loratadine (CLARITIN) 10 Mg Capsule, 1 CAP PO DAILY for allergy symptoms for 30 Days, #30 CAP 0 Refills 11/19/20 Carbidopa/Levodopa (CARBIDOPA-LEVODOPA 25-100 TAB) 1 Each Tablet, 1 EACH PO DAILY for seizures, TAB 11/19/20 Atorvastatin Calcium (ATORVASTATIN CALCIUM) 40 Mg Tablet, 1 TAB PO QHS for cholesterol, #90 TAB 3 Refills 11/19/20 Argin/Glut/Cahmb/Collag/Mv-Min (Tom Packet) 1 Each Powd.pack, 1 EACH PO BID for wound healing, PKT 11/19/20 [ferric] No Conflict Check, 125 MG IV 11/19/20 Vancomycin/Water For Inj (Peg) (Vancomycin 750 mg/150 ml Bag) 750 Mg/150 Ml Piggyback, 500 MG IV QMWF for WITH HEMODIALYSIS, EACH 11/19/20 DEMETRIUS MCKEE MD Nov 22, 2020 17:06
--- NOTE | 2020-11-22 17:30 | NUR ---
PATIENT DISCHARGED PER STRETCHER AND ACCOMPANIED BY 2 PARAMEDICS, SALINE LOCK KEPT IN PLACE DUE TO PATIENT TO RECEIVE IV ABT AT THE FACILITY.
--- NOTE | 2020-11-22 17:35 | NUR ---
Wound Care Wound care attempted follow up visit but pt being discharged with fire dept at bedside upon arrival of WC team. DC photos done by Ronda ORTEGA
--- NOTE | 2020-11-22 18:06 | PATHOLOGY ---
Note [facility] Accession Number: [id number] TESTS RESULT FLAG UNITS REF RANGE LAB Clinician Provided Cytology Information No. of containers..01 Other (Miscellaneous) Source: LEFT PLEURAL FLUID DIAGNOSIS: LEFT PLEURAL FLUID NEGATIVE FOR MALIGNANT CELLS. REACTIVE MESOTHELIAL CELLS ARE PRESENT. THIS INTERPRETATION INCLUDES EVALUATION OF A CELL BLOCK. Signed out by: 02 Obed Marte MD, Pathologist NPI- [id number] Performed by: Milagro Esteves, Industrial Technology Education Teacher ([facility]) Gross description: 01 35ML, YELLOW, 1TP 1CB /LCS 11/22/2020 [facility] Local FLAG LEGEND: L-Low Normal,H-High Normal,LL-Alert Low,HH-Alert High <-Panic Low,>-Panic High,A-Abnormal,AA-Critical Abnormal Performed at: [facility] [address] [place] [address] Kwesi Combs MD, [facility] [address] [place] [address] Obed Marte MD, Specimen Comment: A courtesy copy of this report has been sent to [phone], [phone] Specimen Comment: [id number], Specimen Comment: Report sent to DR FONSECA,DR HIGGINS / DR COWAN Specimen Comment: A duplicate report has been generated due to demographic updates. Performed at: 01 [facility] [address], [place], [place] [id number] MD Kwesi Combs MD Phone: [phone]
[2020-11-24] MEDS ORDERED: VANCOMYCIN RANDOM LEVEL. MC ONE (06:00)
== END 2020-11-22 17:30 | DRG 673 ==
LOC: ER 10:26 → ED HOLD 14:16 → 5 NORTH 19:50
PROVIDERS: ADMIT Internal Medicine; ATTEND Internal Medicine
PROC: 0JH63WZ Insertion of Totally Implantable Vascular Access Device into Chest Subcutaneous Tissue and Fascia, Percutaneous Approach (ICD-10-PCS; principal; 2020-11-19)
PROC: 0W9B3ZZ Drainage of Left Pleural Cavity, Percutaneous Approach (ICD-10-PCS; 2020-11-19)
PROC: 5A1D70Z Performance of Urinary Filtration, Intermittent, Less than 6 Hours Per Day (ICD-10-PCS; 2020-11-19)
PROC: 0JPT0XZ Removal of Tunneled Vascular Access Device from Trunk Subcutaneous Tissue and Fascia, Open Approach (ICD-10-PCS; 2020-11-19)
PROC: 02PA33Z Removal of Infusion Device from Heart, Percutaneous Approach (ICD-10-PCS; 2020-11-19)
PROC: 02H633Z Insertion of Infusion Device into Right Atrium, Percutaneous Approach (ICD-10-PCS; 2020-11-19)
PROC: 5A1D70Z Performance of Urinary Filtration, Intermittent, Less than 6 Hours Per Day (ICD-10-PCS; 2020-11-22)
DX: T82.41XA Breakdown (mechanical) of vascular dialysis catheter, initial encounter (principal); N18.6 End stage renal disease; E43 Unspecified severe protein-calorie malnutrition; L89.154 Pressure ulcer of sacral region, stage 4; J90 Pleural effusion, not elsewhere classified; I12.0 Hypertensive chronic kidney disease with stage 5 chronic kidney disease or end stage renal disease; Z99.2 Dependence on renal dialysis; Z89.611 Acquired absence of right leg above knee; Z89.612 Acquired absence of left leg above knee; F17.201 Nicotine dependence, unspecified, in remission; R53.81 Other malaise; D63.1 Anemia in chronic kidney disease; E10.51 Type 1 diabetes mellitus with diabetic peripheral angiopathy without gangrene; E10.22 Type 1 diabetes mellitus with diabetic chronic kidney disease; E78.5 Hyperlipidemia, unspecified; I25.10 Atherosclerotic heart disease of native coronary artery without angina pectoris; K59.00 Constipation, unspecified; Z20.822 Contact with and (suspected) exposure to COVID-19; D72.829 Elevated white blood cell count, unspecified; E21.3 Hyperparathyroidism, unspecified; Y83.8 Other surgical procedures as the cause of abnormal reaction of the patient, or of later complication, without mention of misadventure at the time of the procedure; Z74.01 Bed confinement status; Z79.01 Long term (current) use of anticoagulants; Z79.4 Long term (current) use of insulin; Z82.49 Family history of ischemic heart disease and other diseases of the circulatory system; Z83.3 Family history of diabetes mellitus; Z86.19 Personal history of other infectious and parasitic diseases; Z86.718 Personal history of other venous thrombosis and embolism; Z89.511 Acquired absence of right leg below knee; Z89.512 Acquired absence of left leg below knee; Z93.3 Colostomy status; Z88.5 Allergy status to narcotic agent; Y92.89 Other specified places as the place of occurrence of the external cause; Z68.36 Body mass index [BMI] 36.0-36.9, adult
CPT/HCPCS: 32555; 36415; 36581; 71045; 77001; 80048; 80053; 80069; 82962; 83605; 83615; 83735; 83986; 84100; 84157; 85007; 85018; 85025; 85610; 87040; 87071; 87075; 87426; 88112; 88305; 93005; 99152; C1750; C1769; C1892; J0882; J1644; J1815; J2185; J2543; J3010; J3370; J7050; U0003; 99285-25; G0378; J7030